=== PATIENT | female | born 2000 | race African-American/Black ===

== ENCOUNTER 2020-10-30 12:18 | Outpatient (RCR) | payer BC, MEDICAID, SELFPAY ==
--- NOTE | 2020-10-30 13:32 | PTOPEVAL ---
PHYSICAL THERAPY EVALUATION AND PLAN OF CARE 10-30-20 Thank you for referring Ivy Hicks to [facility] for the diagnosis of thoracic back pain. She is scheduled to be seen for therapy? 2 x/week for 2 weeks. Then, she is leaving town, to return to college. Please review, sign, date and return this plan of care EDILBERTO. I agree with and certify that the following plan of care is medically necessary. Referring Physician Date Admitting Provider: Attending Provider: FERNANDA Parker *PT Outpatient Evaluation Document 10/30/20 12:35 GISSELLE (Rec: 10/30/20 13:32 GISSELLE [id number]) Past Medical History-- unremarkable Diagnosis thoracic back pain Onset about one year ago Subjective Information gradual increase in pain, as Query Text:As Reported By Patient/ breasts got larger; no trauma Family or injury to back; Diagnostic Tests X-Rays For This Problem No MRI For This Problem No Other Tests For This Problem No Previous Treatments Previous Treatments For This Problem no PT in past Prior Level of Function Activity Level (Last 3 Months) Occupation Work at [employer] Hand Dominance Right Activity of Daily Living Ability Independent Indoor/Home Mobility Independent Community Mobility Independent Stairs Ability Independent Functional Cognition (Planning, Shopping Independent , Taking Medications) Cooking Yes Cleaning Yes Laundry Yes Shopping Yes Driving Yes Comments Additional Prior Level of Function able to perform all home and Comments work tasks, increase pain with standing; Pain Assessment Timing of Pain Assessment Timing of Pain Assessment Assessment Pain Scale Pain Scale Used Numeric (1 - 10) Self Report Pain Assessment Bilateral Spine, Thoracic Reported Pain Level 6 Pain Description Aching Radicular Pain Location no headaches; Pain Frequency Chronic,Intermittent Other Pain Description irritating pain; pressure on shoulders from bra straps; Lowest Pain Intensity 0 Greatest Pain Intensity 7 Pain Aggravating Factors Weight Bearing/Standing Other Pain Aggravating Factors standing tolerance about 1 hour- Pain Behaviors Grimacing,Guarding Pain Score Pain Score 6: Self Report Additional Pain Score Comments self assessment Oswestry score of 14% limitation in activity Interventions Used Interventions Used By Clinicians Elevation,Exercise
--- NOTE | 2020-11-10 10:37 | PCPTNOTE ---
Patient no showed for appointment this date. Left a voicemail with a reminder of upcoming appointment on November 13 at 8:45.
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
--- NOTE | 2020-11-16 10:03 | PCPTNOTE ---
Patient no showed to appointment this date. Called and spoke with patient who said she was going to call and cancel but forgot.
--- NOTE | 2020-11-17 13:17 | PCPTNOTE ---
pt did not show for today's reeval appt;
--- NOTE | 2020-12-04 14:34 | PCPTNOTE ---
PHYSICAL THERAPY DISCHARGE 12-04-20 Attending Provider: FERNANDA Parker Patient:Ivy Hicks Date of :2000 Ms. Hicks has not returned for any further treatments since the PT evaluation on 10/30/2020, therefore she will be discharged at this time. The goals were not assessed. Thank you for referring Ivy to [facility]. Please review, sign, date and return this discharge summary EDILBERTO. I have been updated about the patient's current status and I agree with discharge from the above service at this time. Referring Physician Date
== END 2020-12-09 15:26 | disposition home or self-care (01) ==
LOC: ANHPT 12:18
PROVIDERS: PCP Physician Assistant; Visit Provider Physician Assistant
DX: M54.6 Pain in thoracic spine (principal)
CPT/HCPCS: 97161

== ENCOUNTER 2021-07-09 10:58 | Outpatient (CLI) | payer BC, MEDICAID, SELFPAY ==
--- NOTE | 2021-07-09 | ECG_ITS ---
Measurements Intervals [place] Rate: 62 P: 31 LA: 145 QRS: 62 QRSD: 86 T: 29 QT: 376 QTc: 384 Interpretive Statements SINUS RHYTHM WANDERING BASELINE ARTIFACT NORMAL ECG NO PREVIOUS ECG AVAILABLE FOR COMPARISON Electronically Signed On 07-09-2021 15:18:09 LOOPER OPERATOR by Williams Hayward M.D.
== END 2021-07-09 10:59 | disposition home or self-care (01) ==
LOC: ANHLAB 11:01
PROVIDERS: PCP Physician Assistant; Visit Provider Physician Assistant
DX: Z01.810 Encounter for preprocedural cardiovascular examination (principal)
CPT/HCPCS: 93005

== ENCOUNTER 2021-11-28 14:45 | Emergency (ER) | payer BC, MEDICAID, SELFPAY ==
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
[2021-11-28 14:49] VITALS: BP 111/81; PULSE 86; RESP 14; TEMP 37.1; O2SAT 97
--- NOTE | 2021-11-28 14:49 | ECG_ITS ---
Measurements Intervals [place] Rate: 80 P: 61 [place]: 121 QRS: 36 QRSD: 82 T: 4 QT: 365 QTc: 423 Interpretive Statements SINUS RHYTHM BORDERLINE T WAVE ABNORMALITY- INFERIOR LEADS BASELINE WANDER- II, III, AVR, AVL, AVF, V3-V6 BORDERLINE ECG Electronically Signed On 11-28-2021 17:22:07 CDT by Roberto Dunn D.O.
[2021-11-28 15:48] VITALS: BP 113/92; PULSE 72; RESP 15; O2SAT 100
[2021-11-28 16:39] LABS: Basophils Percent Auto 0.3 % (0.2-1.2); Eosinophils Absolute Auto 0.1 K/mm3 (0-0.3); Eosinophils Percent Auto 0.6 % (0-4.4); Hematocrit 34.2 % (37.0-47.0); Hemoglobin 10.7 g/dL (12.0-15.0); Immature Granulocyte Absolute 0.06 K/mm3 (0.00-0.031); Immature Granulocyte Percent A 0.6 % (0-0.5); Lymphocytes Percent Auto 9.6 % (18.3-44.2); Mean Corpuscular HGB Conc 31.3 g/dl (32-36); Mean Corpuscular Hemoglobin 24.6 pg (26-34); Mean Corpuscular Volume 78.6 fl (80-100); Mean Platelet Volume 9.7 fl (7.4-10.4); Monocytes Absolute Auto 0.9 K/mm3 (0.1-0.6); Monocytes Percent Auto 8.7 % (2.6-8.5); Neutrophils Absolute Auto 8.3 K/mm3 (1.3-6.7); Neutrophils Percent Auto 80.2 % (45.5-73.1); Platelet Count Result 295 k/mm3 (150-375); Red Blood Count 4.35 M/mm3 (4.2-5.4); Red Cell Distribution Width 17.1 % (11.5-14.5); White Blood Count 10.4 K/mm3 (4.5-10.0)
[2021-11-28 16:49] LABS: Alanine Aminotransferase 323 U/L (6-35); Albumin Level 4.2 g/dL (3.5-5.1); Alkaline Phosphatase 68 U/L (38-126); Anion Gap 7 mmol/L (8-16); Aspartate Amino Transferase 357 U/L (14-36); Bilirubin,Total 1.1 mg/dL (0.2-1.3); Blood Urea Nitrogen 9 mg/dL (7-17); Calcium 9.3 mg/dL (8.4-10.2); Carbon Dioxide 28 mmol/L (22-30); Chloride 106 mmol/L (98-107); Estimated CRCL calculation 99 ml/min; Estimated Glomerular Filt Rate > 60; Glucose 107 mg/dL (65-110); Potassium 4.1 mmol/L (3.4-5.0); Sodium 141 mmol/L (137-145)
[2021-11-28 16:51] LABS: INR 1.3; Prothrombin Time 15.2 Seconds (11.1-14.7)
[2021-11-28 16:52] LABS: Partial Thromboplastin Time 25.6 SECONDS (22.3-36.8)
[2021-11-28 17:01] LABS: Troponin I < 0.012 ng/mL (0.000-0.034)
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
[2021-11-28 17:47] LABS: Beta HCG Quantitative < 2.39 mIU/ML
[2021-11-28 18:06] LABS: Appearance Urine Cloudy (Clear); Bilirubin Urine 1+ (Negative); Blood Urine Negative (Negative); Color Urine Amber (Yellow); Glucose Urine UA Negative (Negative); Ketones Urine Trace mg/dL (Negative); Leukocyte Esterase Ur 1+ LEU/UL (Negative); Nitrate Urine Negative (Negative); Protein Urine 1+ mg/dL (Negative); Specific Grav Ur 1.025 (1.001-1.035)
[2021-11-28 18:19] LABS: Amorphous Sediment Urine Few; Bacteria Urine Trace /hpf; Mucus Urine Few /lpf; Squamous Epithelial Cell Urine Many /hpf (Few); WBC Urine 21-30 /hpf
[2021-11-28 18:21] LABS: Add Urine Microscopic? YES
[2021-11-28] MEDS: SODIUM CHLORIDE 0.9% IV 1,000 ML 999 ML IV CONT (18:27)
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
[2021-11-28 19:08] VITALS: BP 124/101; O2SAT 99
[2021-11-28 19:15] VITALS: BP 122/87
--- NOTE | 2021-11-28 19:20 | PC.NURSE ---
[facility] called and given report to charge.
[2021-11-28 19:30] VITALS: PULSE 88; RESP 23; O2SAT 99
[2021-11-28] MEDS: SODIUM CHLORIDE 0.9% IV 1,000 ML 125 ML IV CONT (19:37)
[2021-11-28 19:39] VITALS: BP 100/89; PULSE 80; RESP 21; O2SAT 100
== END 2021-11-28 19:41 | disposition short-term general hospital (02) ==
PROVIDERS: Emergency Provider Emergency Medicine; PCP Physician Assistant
DX: S36.113A Laceration of liver, unspecified degree, initial encounter (principal); S27.1XXA Traumatic hemothorax, initial encounter; S37.011A Minor contusion of right kidney, initial encounter; S42.022A Displaced fracture of shaft of left clavicle, initial encounter for closed fracture; S32.011A Stable burst fracture of first lumbar vertebra, initial encounter for closed fracture; S32.021A Stable burst fracture of second lumbar vertebra, initial encounter for closed fracture; S22.43XA Multiple fractures of ribs, bilateral, initial encounter for closed fracture; S36.899A Unspecified injury of other intra-abdominal organs, initial encounter; V47.5XXA Car driver injured in collision with fixed or stationary object in traffic accident, initial encounter
CPT/HCPCS: 36415; 70450; 71046; 71260; 72125; 73000; 74177; 80053; 81001; 81025; 84484; 84702; 85025; 85610; 85730; 87086; 87088; 93005; 96374; 99285; A4565; J0131; J7030; Q9967

== ENCOUNTER 2024-07-08 16:48 | Emergency (ER) | payer BC, SELFPAY ==
[2024-07-08 16:50] VITALS: BP 126/81; PULSE 83; RESP 16; TEMP 36.8; O2SAT 100
--- NOTE | 2024-07-08 17:10 | PC.NURSE ---
Patient witnessed walking out of ED and getting into car
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
--- OUTSIDE RECORDS SUMMARY | 2024-07-08 19:01 | XMS_ITS | Patient Health Summary ---
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 3:26 PM CDT Shilo Connolly MD ECG ORDERABLES [facility] * MRI LUMBAR SPINE WO CONTRAST (11/29/2021 12:57 AM CDT) Anatomical Region Laterality Modality Spine Magnetic Resonan ce 11/29/2021 9:52 AM CDT Impressions 11/29/2021 10:18 AM CDT IMPRESSION: 1. Acute superior endplate compression fractures involving L1 and L2 with mild height loss at L1. No significant retropulsion. There is injury/edema involving the interspinous ligaments at the level of T12-L1 and also mildly at the level of L1 and L2. Possible minimal injury to the ligamentum flavum at the level of T12-L1. No significant epidural hematoma is noted. 2. Bony edema involving the superior endplate of L3 vertebral body and also involving T12 vertebral body without height loss, favored to represent acute fractures/contusions.. This report was electronically signed by LIUDMILA ALVAREZ MD on 11/29/2021 10:18 AM . Narrative 11/29/2021 10:18 AM CDT MRI LUMBAR SPINE WO CONTRAST DATE: 11/29/2021 12:58 AM EXAMINATION: Magnetic resonance imaging (MRI) of the lumbar spine without contrast HISTORY: T14.90XA: Trauma TECHNIQUE: MRI of the lumbar spine was performed without contrast according to standard protocol. COMPARISON: CT lumbar spine 11/28/2021 FINDINGS: The alignment is normal. The superior endplate compression fractures involving L1 and L2 vertebral body. There is minimal height loss at L2 vertebral body and mild height loss up to 20-25 percent at the L1 vertebral body. Minimal or no significant retropulsion at L1 and L2 vertebral bodies.. There is linear increased marrow signal at superior endplate of L3 vertebral body also suggesting acute superior endplate endplate compression fracture/bone contusion without height loss. There is also increased edema involving T12 vertebral body without height loss also suggesting bone contusion. The conus medullaris terminates at the level of L1-L2 and the distal spinal cord signal intensity is normal. Mild height loss at T12-L1 intervertebral disc space. Otherwise no significant intervertebral disc height loss. Small amount of fluid noted in the pelvis. Normal caliber of the aorta. No other acute soft tissue abnormalities noted. Mild facet arthropathy at L4-L5. Otherwise no significant degenerative changes. No central canal or is neural foraminal stenosis. No definite epidural hematoma. There is injury/edema involving the interspinous ligament at the level of T12-L1 and minimally at the level of L1-L2. There is probable injury to the ligamentum flavum at the level of T12-L1 (image 11, series 2, image 4, series 7) Procedure Note Liudmila Alvarez MD - 11/29/2021 MRI LUMBAR SPINE WO CONTRAST DATE: 11/29/2021 12:58 AM EXAMINATION: Magnetic resonance imaging (MRI) of the lumbar spinewithout contrast HISTORY: T14.90XA: Trauma TECHNIQUE: MRI of the lumbar spine was performed without contrast according to standard protocol. COMPARISON: CT lumbar spine 11/28/2021 FINDINGS: The alignment is normal. The superior endplate compression fractures involving L1 and L2 vertebral body. There is minimal height loss at L2 vertebral body and mild height loss up to 20-25 percent at the L1 vertebral body. Minimal or no significant retropulsion at L1 and L2 vertebral bodies.. There is linear increased marrow signal at superior endplate of L3 vertebral body also suggesting acute superior endplate endplate compression fracture/bone contusion without height loss. Thereis also increased edema involving T12 vertebral body without height lossalso suggesting bone contusion. The conus medullaris terminates at the levelof L1-L2 and the distal spinal cord signal intensity is normal. Mild height loss at T12-L1 intervertebral disc space. Otherwise no significant intervertebral disc height loss. Small amount of fluid noted in the pelvis. Normal caliber of the aorta. No other acute soft tissue abnormalities noted. Mild facet arthropathy at L4-L5. Otherwise no significant degenerative changes. No central canal or is neural foraminal stenosis. No definite epidural hematoma. There is injury/edema involving the interspinous ligament at the levelof T12-L1 and minimally at the level of L1-L2. There is probable injury to the ligamentum flavum at the level of T12-L1 (image 11, series 2, image4, series 7) IMPRESSION: 1. Acute superior endplate compression fractures involving L1 and L2with mild height loss at L1. No significant retropulsion. There isinjury/edema involving the interspinous ligaments at the level of T12-L1 and also mildly at the level of L1 and L2. Possible minimal injury to the ligamentum flavum at the level of T12-L1. No significant epiduralhematoma is noted. 2. Bony edema involving the superior endplate of L3 vertebral body and also involving T12 vertebral body without height loss, favored to represent acute fractures/contusions.. This report was electronically signed by LIUDMILA ALVAREZ MD on 11/29/2021 10:18 AM . Callum Padilla MD MR ORDERABLES * (ABNORMAL) URINALYSIS W/MICROSCOPIC NO CULTURE (11/29/2021 12:12 AM CDT) Color UA Yellow Straw, Yellow 11/29/2021 12:39 AM [facility] Clarity UA Slt Cloudy(A) Clear 11/29/2021 12:39 AM [facility] Specific [place] UA >1.060(H) 1.005 - 1.030 11/29/2021 12:39 AM [facility] pH UA 6.0 5.0 - 8.0 pH 11/29/2021 12:39 AM [facility] Protein UA Negative Negative 11/29/2021 12:39 AM [facility] Glucose UA Negative Negative 11/29/2021 12:39 AM [facility] Ketone UA 1+(A) Negative 11/29/2021 12:39 AM [facility] Bilirubin UA Negative Negative 11/29/2021 12:39 AM [facility] Blood UA 1+(A) Negative 11/29/2021 12:39 AM [facility] Nitrite UA Negative Negative 11/29/2021 12:39 AM [facility] Leukocyte Esterase 2+(A) Negative 11/29/2021 12:39 AM [facility] Urobilinogen UA Negative Negative mg/dL 11/29/2021 12:39 AM [facility] RBC UA 11-20(A) None Seen, 0-2, 3-5 /HPF 11/29/2021 12:39 AM [facility] WBC UA 11-20(A) None Seen, 0-5 /HPF 11/29/2021 12:39 AM [facility] Squamous Epithelial Cells UA 11-20(A) None Seen, 0-2, 3-5 /HPF 11/29/2021 12:39 AM [facility] Mucus UA 1+ /LPF 11/29/2021 12:39 AM [facility] Urine URINE SPECIMEN OBTAINED BY CLEAN CATCH PROCEDURE / Unknown Collection / Unknown 11/29/2021 12:12 AM CDT 11/29/2021 12:23 AM [facility] - 11/29/2021 12:39 AM CDT Callum Padilla MD LAB - URINALYSIS OR DERABLES Performing Organization Address City/State/[facility] Co de Phone Number [facility] [address] [place] [address], [facility] [phone] * URINE DRUG SCREEN IMMUNOASSAY (11/29/2021 12:12 AM T) [facility] Amphetamines Screen Urine Negative Negative: < 1000 ng/mL 11/29/2021 12:44 AM [facility] Barbiturates Screen Urine Negative Negative: < 200 ng/mL 11/29/2021 12:44 AM [facility] Benzodiazepine Screen Urine Negative Negative: < 200 ng/mL 11/29/2021 12:44 AM [facility] Opiates Urine Negative Negative: < 300 ng/mL 11/29/2021 12:44 AM [facility] Cocaine Metabolites Urine Negative Negative: < 300 ng/mL 11/29/2021 12:44 AM [facility] Phencyclidine Screen Urine Negative Negative: < 25 ng/ml 11/29/2021 12:44 AM CDT [facility] Cannabinoids Screen Urine Negative Negative: <50 ng/mL 11/29/2021 12:44 AM CDT [facility] Methadone Screen Urine Negative Negative: < 300 ng/mL 11/29/2021 12:44 AM CDT [facility] Fentanyl Screen Urine Negative Negative: <1.5 ng/mL 11/29/2021 12:44 AM CDT [facility] Urine URINE / Unknown Collection / Unknown 11/29/2021 12:12 AM CDT 11/29/2021 12:23 AM CDT Narrative [facility] - 11/29/2021 12:44 AM CDT The Urine Toxicology Screening Panel does not screen for Propoxyphene, Meprobamate, Carisoprodol, Trazodone, xikm-crr-vniqgon medications and/or volatiles (Acetone, Isopropanol, Methanol or Ethylene Glycol). Ethanol, Salicylate, Acetaminophen, Tricyclic Antidepressants and several therapeutic drugs may be individually assayed in serum or plasma specimen. Toxicology testing by the [facility] is an aid to medical diagnosis and treatment of patients. No documented chain of custody was maintained. Results are intended to be used for clinical purposes only. Callum Padilla MD LAB - URINE DISTRICT LEADER RY ORDERABLES [facility] [address] [place] [address], [facility] [phone] * CT THORACIC SPINE WO CONTRAST (11/28/2021 10:51 PM CDT) Anatomical Region Laterality Modality Spine Computed Tomogra phy 11/28/2021 11:1 2 PM CDT Impressions 11/29/2021 8:47 AM CDT IMPRESSION: 1.Acute incomplete burst fractures of L1 and L2 vertebral bodies with minimal retropulsion. No significant spinal canal stenosis. Suspect widening of the intraspinous distance at T12-L1. These findings raise suspicion for acute injury to the anterior, middle, and posterior columns. 2.No acute fracture in the thoracic spine. 3.Acute bilateral first rib fractures. There is an acute minimally displaced right third posterior rib fracture. 4.Partially visualized small right and trace left pleural effusion/hemothorax. Report drafted by Estevan Rogers MD (Auditor Supervisor). I, Dr. SHANE TAVERA have personally reviewed and interpreted this examination/study. This report was electronically signed by SHANE TAVERA on 11/29/2021 8:47 AM . Narrative 11/29/2021 8:[address] THORACIC SPINE WO CONTRAST, CT LUMBAR SPINE WO CONTRAST DATE: 11/28/2021 10:54 PM EXAMINATION: 1.CT of the thoracic spine without contrast 2.CT of the lumbar spine without contrast HISTORY: T14.90XA: Trauma TECHNIQUE: CT of the thoracic and lumbar spine was performed without contrast according to standard protocol. COMPARISON: No prior studies available for comparison FINDINGS: Thoracic spine: The alignment is normal. Vertebral bodies are normal in height without evidence of acute fracture. There is suggestion of an acute nondisplaced bilateral first rib fractures (image 27 series 3). There is a minimally displaced right third posterior rib fracture. The intervertebral discs appear normal. No central canal stenosis is seen. The facets appear normal. No neural foraminal stenosis is seen. There are partially visualized small right and trace left pleural effusion/hemothorax. Lumbar spine: The alignment is normal. There are acute incomplete burst fractures of the L1 and L2 vertebral body with 10 percent anterior vertebral height loss, mild anterior displacement of the fracture fragments, and minimal retropulsion. No significant spinal canal stenosis. There is mild widening of the interspinous distance at T12-L1 suspicious for injury to the posterior column. No associated facet joint diastasis is seen. There is no degenerative disc disease. The facets appear normal. No neural foraminal stenosis is seen. Procedure Note Shane Tavera MD - 11/29/2021 CT THORACIC SPINE WO CONTRAST, CT LUMBAR SPINE WO CONTRAST DATE: 11/28/2021 10:54 PM EXAMINATION: 1.CT of the thoracic spine without contrast 2.CT of the lumbar spine without contrast HISTORY: T14.90XA: Trauma TECHNIQUE: CT of the thoracic and lumbar spine was performed without contrast according to standard protocol. COMPARISON: No prior studies available for comparison FINDINGS: Thoracic spine: The alignment is normal. Vertebral bodies are normal in height without evidence of acute fracture. There is suggestion of an acute nondisplaced bilateral first rib fractures (image 27 series 3). There is a minimally displaced right third posterior rib fracture. The intervertebral discs appear normal. No central canal stenosis is seen. The facets appear normal. No neural foraminal stenosis is seen. There are partially visualized small right and trace left pleural effusion/hemothorax. Lumbar spine: The alignment is normal. There are acute incomplete burst fractures ofthe L1 and L2 vertebral body with 10 percent anterior vertebral height loss, mild anterior displacement of the fracture fragments, and minimal retropulsion. No significant spinal canal stenosis. There is mildwidening of the interspinous distance at T12-L1 suspicious for injury to the posterior column. No associated facet joint diastasis is seen. There is no degenerative disc disease. The facets appear normal. Noneural foraminal stenosis is seen. IMPRESSION: 1.Acute incomplete burst fractures of L1 and L2 vertebral bodies with minimal retropulsion. No significant spinal canal stenosis. Suspect widening of the intraspinous distance at T12-L1. These findings raise suspicion for acute injury to the anterior, middle, and posteriorcolumns. 2.No acute fracture in the thoracic spine. 3.Acute bilateral first rib fractures. There is an acute minimally displaced right third posterior rib fracture. 4.Partially visualized small right and trace left pleural effusion/hemothorax. Report drafted by Estevan Rogers MD (Auditor Supervisor). Dr. SHANE Perales have personally reviewed and interpreted this examination/study. This report was electronically signed by SHANE TAVERA on 11/29/2021 8:47 AM . Callum Padilla MD CT ORDERABLES * CT ANGIO NECK (11/28/2021 10:51 PM CDT) Anatomical Region Laterality Modality Head Computed Tomogra phy 11/28/2021 10:5 7 PM CDT Impressions 11/29/2021 8:52 AM CDT IMPRESSION: 1.No large arterial injury or occlusion identified in the neck. 2.Acute fracture of the left clavicle with associated soft tissue hematoma and contusion. 3.Partially visualized small right and trace left pleural effusion/hemothorax. Report drafted by Estevan Rogers MD (Auditor Supervisor) Dr. SHANE Perales have personally reviewed and interpreted this examination/study. This report was electronically signed by SHANE TAVERA on 11/29/2021 8:52 AM . Narrative 11/29/2021 8:[address] ANGIO NECK DATE: 11/28/2021 10:54 PM EXAMINATION: CT angiography of the neck with contrast HISTORY: T14.90XA: Trauma TECHNIQUE: CT angiography of the neck was obtained after the uneventful administration of 50 mL Isovue-370 intravenous contrast. Three dimensional postprocessing was performed by the technologist and sent to the workstation for review. COMPARISON: No prior study is available for comparison at the time of this dictation. FINDINGS: Non-angiographic findings: No acute fractures of the cervical spine. There is an acute fracture of the left clavicle with surrounding soft tissue swelling in the left shoulder region and left upper chest. Small right and trace left pleural effusion/hemothorax are partly in the [id number]. No contrast pooling is demonstrated in the soft tissues of the neck to suggest active bleeding. Angiographic findings: The visible aortic arch appears normal. The configuration of the brachiocephalic vessels is typical. The innominate artery and both subclavian arteries appear normal. The right common and internal carotid arteries as well as the right carotid bifurcation appear normal. The left common and internal carotid arteries as well as the left carotid bifurcation appear normal. The cervical vertebral arteries appear normal. The vertebral arteries are codominant. Procedure Note Shane Tavera MD - 11/29/2021 CT ANGIO NECK DATE: 11/28/2021 10:54 PM EXAMINATION: CT angiography of the neck with contrast HISTORY: T14.90XA: Trauma TECHNIQUE: CT angiography of the neck was obtained after the uneventful administration of 50 mL Isovue-370 intravenous contrast. Threedimensional postprocessing was performed by the technologist and sent to the workstation for review. COMPARISON: No prior study is available for comparison at the time ofthis dictation. FINDINGS: Non-angiographic findings: No acute fractures of the cervical spine. There is an acute fracture of the left clavicle with surrounding soft tissue swelling in the left shoulder region and left upper chest. Small right and trace left pleural effusion/hemothorax are partly in the [id number]. No contrast pooling is demonstrated in the soft tissues of the neck to suggest active bleeding. Angiographic findings: The visible aortic arch appears normal. The configuration of the brachiocephalic vessels is typical. The innominate artery and both subclavian arteries appear normal. The right common and internal carotid arteries as well as the right carotid bifurcation appear normal. Theleft common and internal carotid arteries as well as the left carotid bifurcation appear normal. The cervical vertebral arteries appearnormal. The vertebral arteries are codominant. IMPRESSION: 1.No large arterial injury or occlusion identified in the neck. 2.Acute fracture of the left clavicle with associated soft tissuehematoma and contusion. 3.Partially visualized small right and trace left pleural effusion/hemothorax. Report drafted by Estevan Rogers MD (Auditor Supervisor) IDr. SHANE have personally reviewed and interpreted this examination/study. This report was electronically signed by SHANE TAVERA on 11/29/2021 8:52 AM . Callum Padilla MD CT ORDERABLES * BLOOD TYPE VERIFICATION (11/28/2021 8:47 PM CDT) ABO Rh B POS 11/28/2021 9:2 3 PM CDT [facility] Blood Bank BLOOD SPECIMEN / Unknown Venipuncture / Unknown 11/28/2021 8:47 PM CDT 11/28/2021 8:50 PM CDT Ondina Burch MD LAB - BLOOD BANK ORD ERABLES [facility] [address] [place] [address], [facility] [phone] * (ABNORMAL) PTT [facility] (11/28/2021 8:37 PM CDT) APTT 22.6(L) 23.0 - 38.4 Seconds 11/28/2021 9:07 PM CDT [facility] Comment:Suggested therapeuti c range for full dose I.V. unfractionated heparin therapy for venous thromboembolism is 71 to 109 seconds. Blood BLOOD SPECIMEN / Unknown Venipuncture / Unknown 11/28/2021 8:37 PM CDT 11/28/2021 8:40 PM CDT Callum Padilla MD LAB - COAGULATION O FRANCIA Performing Organization Address City/[facility]/ZIP Co de Phone Number [facility] [address] [place] [address], [facility] [phone] * (ABNORMAL) PT-INR [facility] (11/28/2021 8:37 PM CDT) PT 15.0(H) 12.1 - 14.8 Seconds 11/28/2021 9:06 PM CDT [facility] INR 1.2 See Comment 11/28/2021 9:06 PM CDT [facility] Comment:The suggested therap eutic range for standard coumadin (warfarin) therapy is an INR of 2.0-3.0. For high-risk patients (Mechanical Mitral Valve Prosthesis, etc.), the suggested prophylactic therapeutic range is an INR of 2.5-3.5. Blood BLOOD SPECIMEN / Unknown Venipuncture / Unknown 11/28/2021 8:37 PM CDT 11/28/2021 8:40 PM CDT Callum Padilla MD LAB - COAGULATION O FRANCIA Performing Organization Address City/[facility]/ZIP Co de Phone Number [facility] [address] [place] [address], [facility] [phone] * (ABNORMAL) CBC W AUTO DIFFERENTIAL (11/28/2021 8:37 PM CDT) WBC 10.3 3.5 - 10.5 10 3/uL 11/28/2021 8:47 PM CDT [facility] RBC 4.01 3.80 - 5.20 10 6/uL 11/28/2021 8:47 PM CDT [facility] Hemoglobin 9.6(L) 12.0 - 15.6 g/dL 11/28/2021 8:47 PM CDT [facility] Hematocrit 30.6(L) 35.0 - 45.0 % 11/28/2021 8:47 PM CDT [facility] MCV 76.3(L) 80.7 - 98.3 fL 11/28/2021 8:47 PM [facility] MCH 23.9(L) 26.7 - 34.0 pg 11/28/2021 8:47 PM [facility] MCHC 31.4 30.8 - 35.9 g/dL 11/28/2021 8:47 PM [facility] Platelet Count 281 150 - 400 10 3/uL 11/28/2021 8:47 PM [facility] RDW-SD 46.5 36.0 - 50.0 fL 11/28/2021 8:47 PM [facility] RDW-CV 16.7(H) 11.2 - 14.8 % 11/28/2021 8:47 PM [facility] MPV 10.0 9.4 - 12.9 fL 11/28/2021 8:47 PM [facility] nRBC Absolute 0.00 0 10 3/uL 11/28/2021 8:47 PM [facility] nRBC Auto 0.0 0 /100 WBC 11/28/2021 8:47 PM [facility] Neutrophils % 79.3(H) 35.0 - 70.0 % 11/28/2021 8:47 PM [facility] Lymphocytes % 12.5(L) 20.0 - 43.0 % 11/28/2021 8:47 PM [facility] Monocytes % 7.3 5.0 - 13.0 % 11/28/2021 8:47 PM [facility] Eosinophils % 0.2 0.0 - 6.0 % 11/28/2021 8:47 PM [facility] Basophil % 0.3 0.0 - 2.0 % 11/28/2021 8:47 PM [facility] Neutrophils Absolute 8.17(H) 1.60 - 7.00 10 3/uL 11/28/2021 8:47 PM [facility] Lymphocyte Absolute 1.29 1.10 - 3.90 10 3/uL 11/28/2021 8:47 PM [facility] Monocytes Absolute 0.75 0.26 - 1.07 10 3/uL 11/28/2021 8:47 PM CDT [facility] Eosinophils Absolute 0.02 0.00 - 0.47 10 3/uL 11/28/2021 8:47 PM CDT [facility] Basophils Absolute 0.03 0.00 - 0.08 10 3/uL 11/28/2021 8:47 PM CDT [facility] Immature Granulocytes % 0.4 0.0 - 1.0 % 11/28/2021 8:47 PM CDT [facility] Immature Granulocytes Absolute 0.04 11/28/2021 8:47 PM CDT [facility] Blood BLOOD SPECIMEN / Unknown Venipuncture / Unknown 11/28/2021 8:37 PM CDT 11/28/2021 8:40 PM CDT Callum Padilla MD LAB - HEMATOLOGY OR DERABLES Performing Organization Address City/[facility]/ZIP Co de Phone Number [address] [address], [facility] [phone] * HCG BETA BLOOD QUANTITATIVE (11/28/2021 8:37 PM CDT) [facility] Beta-hCG Total Quantitative <3 mIU/mL 11/28/2021 9:26 PM CDT [facility] Comment: This assay is cleared for use in the early detection of only. It is not approved for any other uses such as tumor marker screening, tumor marker monitoring, etc. and should not be used for any other purposes. HCG Numeric Result Interpretation: Non- Females: < 5 mIU/mL Post-Menopausal Females: < 7 mIU/mL Blood BLOOD SPECIMEN / Unknown Venipuncture / Unknown 11/28/2021 8:37 PM CDT 11/28/2021 8:40 PM CDT Callum Padilla MD LAB - CHEMISTRY ORD ERABLES [address] [address], [facility] [phone] * LIPASE BLOOD (11/28/2021 8:37 PM CDT) Lipase 22 8 - 78 U/L 11/28/2021 9:14 PM CDT [facility] Blood BLOOD SPECIMEN / Unknown Venipuncture / Unknown 11/28/2021 8:37 PM CDT 11/28/2021 8:40 PM CDT Callum Padilla MD LAB - CHEMISTRY ORD ERABLES Performing Organization Address City/[facility]/ZIP Co de Phone Number [address] [address], [facility] [phone] * ALCOHOL ETHYL BLOOD (11/28/2021 8:37 PM CDT) Ethanol (mg/dL) <10 <10 mg/dL 9:14 PM CDT [facility] Ethanol Calculated (g/dL) <0.010 <=0.010 g/dL 11/28/2021 9:14 PM CDT [facility] Blood BLOOD SPECIMEN / Unknown Venipuncture / Unknown 11/28/2021 8:37 PM CDT 11/28/2021 8:40 PM CDT Narrative [facility] - 11/28/2021 9:14 PM CDT Ethanol Interp <10: None Detected. Depression of TITLE ATTORNEY: >100 mg/dl Potentially Critical: >250 mg/dl Potentially Fatal >400 mg/dl Ethanol in the patient's blood will contribute to the osmolar gap. Ethanol's contribution to the osmolar gap can be estimated by dividing the concentration of ethanol in mg/dL by 4.6. This test is for clinical use only and does not equal a LEANDRO for legal purposes. Callum Padilla MD LAB - CHEMISTRY ORD ERABLES Performing Organization Address City/[facility]/ZIP Co de Phone Number [address] [address], [facility] [phone] * XR PELVIS 1 OR 2VW (11/28/2021 8:36 PM CDT) Anatomical Region Laterality Modality Pelvis Radiographic Mehnaz ging 11/28/2021 9:24 PM CDT Impressions 11/28/2021 9:56 PM CDT IMPRESSION: No acute fracture or dislocation identified. Report drafted by Estevan Rogers MD (Auditor Supervisor). Dr. MARCIO Perales have personally reviewed and interpreted this examination/study. This report was electronically signed by MARCIO JENNINGS on 11/28/2021 9:56 PM . Narrative 11/28/2021 9:56 PM CDT EXAMINATION: XR PELVIS 1 OR 2VW HISTORY: Trauma Fracture suspected COMPARISON: No prior study is available for comparison. FINDINGS: No acute fracture is identified. The bilateral hip joint spaces are preserved. The pubic symphysis is intact. The osseous architecture and density are normal. The sacroiliac joints are normal. There is contrast opacification of the urinary bladder. Procedure Note Marcio Jennings MD - 11/28/2021 EXAMINATION: XR PELVIS 1 OR 2VW HISTORY: Trauma Fracture suspected COMPARISON: No prior study is available for comparison. FINDINGS: No acute fracture is identified. The bilateral hip joint spaces are preserved. The pubic symphysis is intact. The osseous architecture and density are normal. The sacroiliac joints are normal. There is contrast opacification of the urinary bladder. IMPRESSION: No acute fracture or dislocation identified. Report drafted by Estevan Rogers MD (Auditor Supervisor). Dr. MARCIO Perales have personally reviewed and interpreted this examination/study. This report was electronically signed by MARCIO JENNINGS on 11/28/2021 9:56PM . Callum Padilla MD DIAGNOSTIC IMAGING ORDERABLES * ETT LINE PERFORMABLE (07/14/2021 12:41 PM CDT) Narrative Clarita Felder MD - 07/14/2021 12:41 PM CDT Clarita Felder MD 07/14/2021 12:46 PM Endotracheal Tube Placement: Patient Location: OR. Intubation Event Date/Time: 07/14/2021 12:04 PM Procedure: intubation ([id number]). Procedure Section: Sedation: under general anesthesia. Indications for Airway Management: anesthesia Induction: standard IV Patient Position: supine Mask Ventilation: easy with oral airway. Blade Type: Any Blade Size: 3 Laryngoscopy View: grade 1 (full cords) Tube type: cuff - inflated Tube Size (MM): 7.5 Depth of Insertion (CM): 22 Measured From: lips Cuff volume (mL): 3 Cuff Inflated With: air Number of Attempts: 1. Placement Verified By: direct visualization, bilateral breath sounds, chest auscultation and CO2 monitor Tube secured with: adhesive tape. Dentition unchanged? Yes Difficult Airway? No. Procedure Start Time: 07/14/2021 12:04 PM. Staff Section Anesthesia Provider: Bonny Chapa APRN-STAKE DRIVER, Performed the procedure Provider #1: Clarita Felder MD. Additional Comments: Placed by ER fellow.. Clarita Felder MD GENERAL ANESTHESIA O RDERABLES * PATHOLOGY TISSUE EXAM (STL) (07/14/2021 11:00 AM CDT) Case Report Surgical Pathology Report Case: [id number] Authorizing Provider: Mary Randhawa MD Collected: 07/14/2021 11:00 AM Ordering Location: INTRAOP Received: 07/15/2021 07:23 AM Pathologist: Jean Paul Morel MD Specimens: A) - Breast Reduction, right breast reduction B) - Breast Reduction, left breast reduction 07/19/2021 12:51 PM T [facility] Final Diagnosis A) Breast, Right, Excision: - No significant histopathologic abnormality. - Clinical history of macromastia. B) Breast, Left, Excision: - No significant histopathologic abnormality. - Clinical history of macromastia. 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 07/19/2021 12:51 PM T [facility] Gross Description Two specimens are received, each in a formalin-filled container labeled with the patient's name, Ivy Hicks. Specimen A, right breast reduc++, consists of multiple fragments of yellow to pink-baker fibroadipose tissue measuring 0.6 to 26 cm in greatest dimension, 30 x 15 x 5.0 cm in aggregate, weighing 680 g. There are detached fragments of dark baker skin ellipses measuring up to 13 x 1.5 cm. Sectioning shows yellow to pink-baker cut surface with areas of white-baker stromal tissue. There are no focal lesions identified. Chief Technologist sections are submitted in cassette [id number]. Specimen B, left breast reduction, consists of multiple fragments of yellow to pink-baker fibroadipose tissue measuring 6.0 to 30 cm in greatest dimension and 35 x 30 x 3.0 cm in aggregate. There is dark baker attached skin and detached fragments of skin measuring up to 15 cm in length by 4.0 cm in width. The specimen weighs 780 g. Sectioning shows yellow to pink-baker cut surface with white areas of fibrous tissues. There are no focal lesions identified. Chief Technologist sections are submitted in cassettes B1-B5. (SAMSON/ETHAN/daryl) 07/19/2021 12:51 PM [facility] Microscopic Description A) 5 H&E; B) 5 H&E. Sections of both specimens show similar histologic features: unremarkable hair-bearing skin and breast parenchyma that is unremarkable except for a rare focus of apocrine metaplasia. (SAMSON) 07/19/2021 12:51 PM [facility] Disclaimer The performance characteristics of all immunohistochemical and indirect immunofluorescence stains (if any) cited in this report were determined by the [facility] of [facility] in compliance with Clinical Laboratory Improvement Amendments of 1988 (CLIA'88) regulations. Some of these tests rely on the use of analyte-specific reagents and are subject to specific labeling requirements by the U.S. Food and Drug Administration (FDA). Such tests were developed by the [facility] of [facility] and have not been cleared or approved by the FDA. The FDA has determined that such clearance or approval is not necessary. These tests are used for clinical purposes and should not be regarded as investigational or for research. This case has been personally reviewed and interpreted by the attending (teaching) pathologist. 07/19/2021 12:51 PM [facility] Embedded Images 07/19/2021 12:51 PM [facility] Pathology/Cytology SPECIMEN FROM BREAST OBTAINED BY EXCISION / Unknown 07/14/2021 11:00 AM CDT 07/15/2021 7:23 AM CDT Comment:Pre-op diagnosis: Hypertrophy of breast [N62] Miscellaneous samples (specimen) SPECIMEN FROM BREAST OBTAINED BY EXCISION / Unknown 07/14/2021 11:00 AM CDT 07/15/2021 7:23 AM CDT Comment:Pre-op diagnosis: Hypertrophy of breast [N62] Mary Randhawa MD LAB - PATHOLOGY /CYTOLOGY ORDERABLES Performing Organization Address [facility] Co de Phone Number [facility] [address] [place] [phone] * HCG URINE QUALITATIVE - POCT (IP) INTERFACED (07/14/2021 10:31 AM CDT) Only the most recent of2 resultswithin the time period is included. HCG Qual Urine Negative Negative 07/14/2021 10:42 AM CDT [facility] Urine URINE / Unknown 07/14/2021 1 0:31 AM CDT 07/14/2021 10:42 AM CDT Mary Randhawa MD LAB - POINT OF CARE ORDERABLES Performing Organization Address [facility] Co de Phone Number [facility] [address] [place] [phone] * HCG URINE QUAL POCT NOTIFICATION (07/14/2021 10:28 AM CDT) Only the most recent of2 resultswithin the time period is included. Comment Notification Label Only - See Separate Report 07/14/2021 11:30 AM CDT [facility] Urine URINE / Unknown 07/14/2021 1 0:28 AM CDT 07/14/2021 10:29 AM CDT Mary Randhawa MD LAB - URINALYSI S ORDERABLES Performing Organization Address [facility] Co de Phone Number [facility] [address] [place] [phone] * SARS-COV-2 (COVID-19) INTERNAL (07/09/2021 1:17 PM OUTPLACEMENT CONSULTANT) Only the most recent of2 resultswithin the time period is included. COVID-19 PCR Not detected Not detected 07/10/2021 1:10 AM OUTPLACEMENT CONSULTANT [facility] Microbiology SPECIMEN FROM NASOPHARYNGEAL STRUCTURE / Unknown Collection / Unknown 07/09/2021 1:17 PM OUTPLACEMENT CONSULTANT 07/09/2021 1:17 PM OUTPLACEMENT CONSULTANT Narrative [facility] - 07/10/2021 1:10 AM OUTPLACEMENT CONSULTANT This nucleic acid amplification assay performance was validated by [facility]. This test has been authorized by the Food and Drug administration (FDA)under an Emergency Use Authorization (EUA). This test has been validated in accordance with the FDA's guidance document Policy for Diagnostic Testing in Laboratories Certified to perform High Complexity Testing under CLIA prior to Emergency Use Authorization for Coronavirus Disease-2019 during the Public Health Emergency issued on June 29, 2019. FDA independent review of this validation is pending. This test is only authorized for the duration of time the declaration that circumstances exist justifying the authorization of emergency use of in vitro diagnostic tests for detection of SARS-CoV-2 virus and/or diagnosis of COVID-19 infection under section 564(b)(1) of the Act, 21 U.S.C 360bbb-3 (b)(1), unless the authorization is terminated or revoked sooner. Fact Sheets for this EUA assay are available upon request. Mandy YOUNG LAB - MICROBIOLOG Y ORDERABLES [facility] [address] [place], [address] [phone] * HCG BLOOD QUALITATIVE (05/27/2021 7:18 AM OUTPLACEMENT CONSULTANT) [facility] HCG Qual Serum Positive Negative, Positive 05/27/2021 7:45 AM OUTPLACEMENT CONSULTANT [facility] Blood BLOOD SPECIMEN / Unknown Venipuncture / Unknown 05/27/2021 7:18 AM OUTPLACEMENT CONSULTANT 05/27/2021 7:23 AM OUTPLACEMENT CONSULTANT Mary Randhawa MD LAB - CHEMISTRY ORDERABLES [facility] [address] [address], [facility] [phone] Care Teams Control Room Agent Relationship Specialty Start Date End Date Carolyne Lee PA-C [facility] [place] [phone] PCP - General Physician Third Helper 07/09/21
--- OUTSIDE RECORDS SUMMARY | 2024-07-08 19:01 | XMS_ITS | Data Portability ---
Author Organization [facility] Address [address] [place] [address] Assessment No assessment recorded. Plan of Treatment Reminders Order Date Submit Date Provider Last Modified By Organization Details Last Modified Time Details Appointments None recorded. Lab pap, LB 2022 023 [email or web address], [address] [facility], [place], [address], 3 11:06:29 unlisted lab - Pap reflex hold plus CT/GC/tric h 2022 023 [employer] [place] Tariq, [address] [place] [address], [address], 3 17:43:51 Referral None recorded. Procedures None recorded. Surgeries None recorded. Imaging None recorded. Medication Orders Slynd 4 mg (28) tablet 2022 023 [id number], [address], [place], [id number], 3 14:19:09 Slynd 4 mg (28) tablet 2021 022 [facility] #[id number], [address], [place], [id number], 2 13:35:56 Patient TargetsNo targets recorded. Patient Instructions Encounter Date Encounter Id Patient Instructions Last Modified By Organization Details Last Modified Time 07/16/2022 [id number] eating healthy foods: care instructions [id number] Not available 07/16/2022 13:40:00 Reason for Referral None Reported. Results Created Date Observation Date Name Description Value Unit Range Abnormal Flag Note LastModifiedBy Organization Detail LastModifiedTime 07/17/19 23 07/19/2022 CT/GC /TRIC H + HOLD trichomonas vaginalis TRICH neg negati ve normal Not Available [address], [address], 07/19/2022 17:43:51 07/17/19 23 07/19/2022 CT/GC /TRIC H + HOLD chlamydia trachomatis CT neg negati ve normal This repor t is inten ded for us in clini erin monit oring and manag ement of patie nts. It is not inten ded for use in medic al-le gal appli catio n. Not Available [address], [address], 07/19/2022 17:43:51 07/17/19 23 07/19/2022 CT/GC /TRIC H + HOLD neisseria gonorrhoeae GC neg negati ve normal This repor t is inten ded for us in clini erin monit oring and manag ement of patie nts. It is not inten ded for use in medic al-le gal appli catio n. Not Available [address], [address], 07/19/2022 17:43:51 07/17/19 23 07/25/2022 THINP REP TIS PAP clinical information: normal None given Not Available [facility] [address] [place], [address], 07/25/2022 11:06:29 07/17/19 23 07/25/2022 THINP REP TIS PAP LMP: normal NONE GIVEN Not Available [facility] [address] [place], [address], 07/25/2022 11:06:29 07/17/19 23 07/25/2022 THINP REP TIS PAP prev. Pap: normal NONE GIVEN Not Available [facility] [address] [place], [place] [address], [address], 07/25/2022 11:06:29 07/17/19 23 07/25/2022 THINP REP TIS PAP prev. BX: normal NONE GIVEN Not Available [address], [address], 07/25/2022 11:06:29 07/17/19 23 07/25/2022 THINP REP TIS PAP source: normal None given Not Available [address], [address], 07/25/2022 11:06:29 07/17/19 23 07/25/2022 THINP REP TIS PAP statement of adequacy: normal Satis facto ry for evalu ation . Endoc ervic al/tr ansfo rmati on zone compo nent prese nt. Age and/o r menst rual statu s not provi ded Not Available [address], [address], 07/25/2022 11:06:29 07/17/19 23 07/25/2022 THINP REP TIS PAP interpretati on/result: normal Negat joya for intra epith elial lesio n or malkristine arroyo . Not Available [address], [address], 07/25/2022 11:06:29 07/17/19 23 07/25/2022 THINP REP TIS PAP comment: normal This case could not be evalu ated with compu ter anette sara techn ology . The slide was kevin vallejo theresa accor ding to srikanth gonzalez . Not Available [address], [address], 07/25/2022 11:06:29 07/17/19 23 07/25/2022 THINP REP TIS PAP cytotechnolo gist: normal MMW, CT( CP) CT scree pepe locat ion: [address] [address] [place] [address] Not Available [address], [place], [address], 07/25/2022 11:06:29 07/17/19 23 07/25/2022 THINP REP TIS PAP review cytotechnolo gist: normal KMS, CT( CP) CT Scree pepe locat ion: [address] [address] [place] [address] Not Available [facility] [address], [place], [address], 07/25/2022 11:06:29 07/17/19 23 07/25/2022 THINP REP TIS PAP comment EXPLA NATYANELI Y NOTE: The Pap is a scree pepe test for cervi erin cance r. It is not a diagn ostic test and is subje ct to false negat joya and false posit joya resul ts. It is most relia ble when a satis facto ry sampl e, regul lias obtai theresa, is submi tted with relev ant clini erin findi ngs and histo ry, and when the Pap resul t is evalu ated along with histo chalo and curre nt clini erin infor matio n. Not Available [facility] [address], [place], [address], 07/25/2022 11:06:29 Result Notes None recorded. Procedures Surgical History Date Name Laterality Status Provider Name and Address Organization Details Recorded Time Date of Last Pap Smear completed Patricia Granger CNM [facility] [place], [address], [facility] 11/22/2023 20:00:46 Breast Reduction completed Kristine John [facility] [employer] [facility] 07/16/2022 13:33:40 operation on lumbar spine completed Dariela Kaba MD [facility] [place], [address], [facility] 07/16/2022 14:13:57 Imaging Results None recorded. Procedure Notes None recorded. Medical Equipment None Reported. Allergies No known drug allergies Medications Name Sig Start Date Stop Date Status Note LastModified by Organization Details LastModified Time ibuprofen 800 mg tablet TAKE 1 TABLET BY MOUTH EVERY 8 HOURS NEEDED 05/15 completed Not Available Not Available Not Available methocarbam ol 750 mg tablet TAKE 1 TABLET BY MOUTH EVERY 6 HOURS NEEDED FOR MUSCLE SPASMS 07/16 completed Not Available Not Available Not Available promethazin e 25 mg tablet TAKE 1 TABLET BY MOUTH EVERY 6 HOURS NEEDED 05/15 completed Not Available Not Available Not Available oxycodone 5 mg tablet TAKE 1 TABLET BY MOUTH EVERY 6 HOURS NEEDED FOR PAIN 07/16 completed Not Available Not Available Not Available Slynd 4 mg (28) tablet Take 1 tablet every day by oral route. active Not Available Not Available No t Available ID NOW COVID-19 Test Kit TEST DIRECTED TODAY 07/16 completed Not Available Not Available Not Available Vitals Date Recorded Body height Body mass index (BMI) Percentile per age and sex Body mass index (BMI) Body weight Body temperature Systolic blood pressure Diastolic blood pressure Provider Name and Address Organization Details Last Updated DateTime 2 167.64 cm 83 % 26.1 kg/m2 36430.8 1 g 97 [degF] 108 mm[Hg] 68 mm[Hg] Jen Osorioshukri [employer] [facility] 2 13:15:48 Date Recorded Body weight Body mass index (BMI) Body height Systolic blood pressure Diastolic blood pressure Provider Name and Address Organization Details Last Updated DateTime 07/16/2022 27387.68 g 23.6 kg/m2 165.1 cm 122 mm[Hg] 66 mm[Hg] Kristine John [employer] [facility] 3 13:39:59 Social History Question Answer Notes LastModified by Organizat ion Details LastModified Time Tobacco Smoking Status Never Smoker Dariela Kaba MD [address] [facility], [place], [address], [employer] [facility] 07/16/2022 14:13:25 What Is Your Level Of Alcohol Consumption? Occasional Information not available 07/16/2022 Are You Blind Or Do You Have Difficulty Seeing? No Information not available 07/16/2022 Are You Deaf Or Do You Have Serious Difficulty Hearing? No Information not available 07/16/2022 What Type Of Diet Are You Following? VEGETARIAN Information not available 07/16/2022 Which Illicit Or Recreational Drugs Have You Used? Marijuana Occasionally Information not available 07/16/2022 Do You Or Have You Ever Used E-cigarettes Or Vape? Never Used Electronic Cigarettes Information not available 07/16/2022 What Is The Highest Grade Or Level Of School You Have Completed Or The Highest Degree You Have Received? GO91001-2 In [employer] - [place] Information not available 07/16/2022 How Many Children Do You Have? -2 Information not available 07/16/2022 What Is Your Relationship Status? Single Information not available 07/16/2022 Are You Sexually Active? Yes cduft Information not available 05/15/2021 Do You Use Any Illicit Or Recreational Drugs? Yes Information not available 07/16/2022 Have You Used IV Drugs? No Information not available 07/16/2022 Do You Or Have You Ever Used Any Other Forms Of Tobacco Or Nicotine? No Information not available 07/16/2022 Sex: Unknown Functional Status Question Answer Note LastModified by Organization D etails LastModified Time What is your exercise level? Moderate Information not available 07/16/2022 Mental Status None recorded. Family History Relationship Description Onset Age of this Age Resolved Age Notes LastModified by Organization Details LastModified Time Father No current problems or disability Not available 07/16 13:36:14 Mother No current problems or disability Not available 07/16 13:36:14 Medical History Condition Response Other Cancer N High Blood Pressure N Colon Cancer N Cytomegalovirus N Hyperthyroidism N Breast Cancer N Herpes (HSV) N MRSA N Blood Transfusion N Lung Cancer N Hypothyroidism N Depression N Incontinence N Panic Attacks N Neurological Disorder N Deep Vein Thrombosis N Anxiety Disorder N Autoimmune disease N Arthritis N Tuberculosis/Positive PPD N Shingles N Polycystic Ovarian Syndrome N Cervical Cancer N Hematuria N Chlamydia N Varicosities N Stroke N Crohn's Disease N Seasonal allergies N Alzheimer's/Dementia N COPD/Emphysema N HPV/Genital Warts N Endometriosis N IBS (Irritable Bowel Syndrome) N History of Abnormal Pap N High Cholesterol N Liver Disease N Fibromyalgia N Kidney Infection N Ulcer N Kidney Disease N HIV N Gallbladder disease N Von Willebrand disease N Sickle Cell Disease/Trait N ADD/ADHD N Eating Disorder N Diabetes Mellitus (non-insulin dependent ) N Anemia N Ovarian Problems N Multiple Sclerosis N Gonorrhea N Frequent Urinary Tract infections N Osteopenia N Headaches/migraines N GERD (reflux) N Ovarian Cancer N Diabetes (insulin dependent) N Seizures/Epilepsy N Fibroids N Asthma N Heart Attack N Endometrial Cancer N Lupus N Rubella N Blood Clotting Disorder N Bipolar Disorder N Diabetes Mellitus (during ) N Ulcerative Colitis N Hepatitis N Heart Disease N Pulmonary Embolism N RPR N Chicken Pox N Osteoporosis N Gynecological History Statement/Question Response Date of Last Pap Smear 07/21/2022 Current Control Method BCPs Age at Menarche 13 Date of LMP 05/12/2022 Obstetrics History GPAL:G 2 P 0 0 2 0 Type Value Induced 2 Total 2 Past Encounters Encounter ID Performer Location Encounter Start Date Encounter Closed Date Diagnosis/Indication Diagnosis SNOMED-CT Code Diagnosis ICD10 Code Diagnosis Note [id number] Ave coronado CNM [facility] [address] [place] [address] 05/15/2021 12:48:14 06/01/2021 11:20:00 Contraception care 566306180 Z30.09 reviewed LARC, SHAKILA, POP and Xulaine desires POP (same as mom takes) [id number] Dariela Kaba MD [facility] [address] [place] [address] 07/16/2022 12:37:19 07/16/2022 14:45:03 Gynecologic examination 60240758 Z01.419 Screening for malignant neoplasm of cervix 634418723 Z12.4 Discussed STD screening and safe sex. Surveillan ce of contraception 115461098 Z30.41 doing well on Slynd and will continue this pill. Stressed compliance /correct usage to prevent unintended Health Concerns Section Related Observation LastModified by Organization Detai ls LastModified Time None Recorded Concern Status LastModified by Organization Details LastModified Time None Recorded Advance Directives Directive None Recorded Payers Encounter Date Sequence Insurance Name Policy Number Policy [place] Covered Member ID [place] Member ID Guarantor Name 05/15/2021 1 [place] [id number] Tanika Kan [id number] Ivy Hicks 07/16/2022 1 [place] [id number] Tanika Kan [id number] Ivy Hicks Notes Date Note Type Note Provider Name and Address Organization Details Recorded Time 05/15/2021 text/html Contraception visitReported bypatient.Type of Contraceptionnone Sexual HistorySexually active Menstrual cycle:Normal menses Pt would like to discuss control options. Ave Huynh CNM [address] [place] [address], [place], [address], [facility] [employer] 05/15/2021 13:36:44 07/16/2022 text/html Ivy Hicks is being seen today for an annual exam with her first pap smear. She saw Ave last year and was started on Slynd control. She reports doing well on this pill and mostly has no periods. She desires to continue this pill.She requests STD testing today with her papShe is a college student at [employer] studying Human Resources. She graduated from [employer].She is a nonsmoker. Does admit to using Marijuana occasionally Dariela Kaba MD [address] [place] [address], [place], [address], [facility] [employer] [facility] 07/16/2022 14:20:42 OBGyn Episode Ob Episode Information Episode Created Date Number of Fetuses Patient Bloodtype Patient rh Status Prepregnancy Weight lbs Domestic Partner Domestic Partner Phone Father Name Aeronautical Design Engineer Status 05/15/19 22 1 CLOSED Fetus Data First Name Last Name Admitted to NICU Weight (g) Sex Living Outcome Pediatric Complications Fetus ID Race Codes Race Delivery Type , Induced [id number] Rajesh Calculation Initial Rajesh Date Initial Exam Date Initial Exam Provider Initial Ultrasound Date Last Menstrual Period Date Ultra Sound Weeks Gestation 0 Eighteen To Twenty Week Rajesh Update Ultra Sound Date Fundal Height At Umbil Quickening Date Ultra Sound Latest Weeks Gestation Final Rajesh Confirmed By Final Rajesh Confirmed Date Final Rajesh Date Ultra Sound Latest Days Gestation 0 0 Menstrual History Last Menstrual Date Menses Monthly On Bcp Conception Prior Menses Frequency Hcg Plus Date Menarche Onset Age Delivery Information Delivery Date Delivery Type Labor Anesthesia Weeks Gestation Incision Type Labor Labor Length Hrs Delivered By Post Complications Tubal Sterilization Discharge Date Comments 2 Discharge Information Feeding Method Contraceptive Method Maternal HG B and HCT Levels
--- OUTSIDE RECORDS SUMMARY | 2024-07-08 19:01 | XMS_ITS | Clinical Summary ---
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 Gender Identity Not on file Sexual Orientation Not on file Plan of Treatment Health Maintenance Due Date Last Done Comments Hepatitis C Virus (HCV) Screening 2000 Meningococcal B Immunization (2 of 2 - Bexsero SCDM 2-dose series) 09/24/2019 03/26/2019 Pap Smear 2021 Influenza Immunization (#1) 2023 05/23/2013, 1 SARS-COV-2 Immunization ( season) 2023 Respiratory Syncytial Virus (RSV) Immunization (Adult) (1 - 1-dose 75+ series) 12/28/2075 Hepatitis B Immunization Completed 002, 03/02/2001, 2000 Pneumococcal Immunization Combined Completed 11/18/2004, 04/30/2001, 03/02/2001 DTaP/Tdap/Td Immunization Discontinued 2011, 08/09/2005, 05/10/2002, Additional history exists TdaP Immunization Completed 11/22/2011 Meningococcal Immunization (ACWY) Aged Out 05/23/2013 No longer eligible based on patient's age to complete this topic Human Papillomavirus (HPV) Immunization Completed 04/02/2015, 12/11/2014, 05/23/2013 Rotavirus Immunization Aged Out No lo nger eligible based on patient's age to complete this topic Insurance ([address] [address] [employer] on file
--- OUTSIDE RECORDS SUMMARY | 2024-07-08 19:01 | XMS_ITS | Clinical Summary ---
Author Organization [facility] Address [address] [place] [address] Care Team Providers Care Gardener Florist Name Role Phone Carolyne Lee PA-C Primary Care Provider Source Comments [facility],non-owned Affiliates and Associated Physician Practices is amultiple site organization consisting of ambulatory clinics and hospital sitesin [place], [place], [place] and [place]. This disclosure is being madepursuant to the Care Everywhere program and may not contain all information available regarding this patient. Last updated 18.[facility] Allergies No known active allergies Medications * [...] 11/18/2004,04/30/2001 TDAP, HISTORIC VACCINE 11/22/2011 VARICELLA 04/08/2009,01/28/2002 Family History Medical History Relation Name Comments Skin problem Brother 1 abscess on butt ocks Eczema Brother 2 Anesthesia Reaction Neg Hx Relation Name Status Comments Brother 1 Brother 2 Social History Tobacco Use Types Packs/Day Years [...] Mass Index 23.3 01/06/2022 2:11 PM CDT Plan of Treatment Health Maintenance Due Date Last Done Comments PAP SMEAR 2000 HIV SCREENING 12/28/2015 CHLAMYDIA/GONORRHEA SCREENING 2016 HEPATITIS C SCREENING 12/23/2018 MENINGOCOCCAL (Group B) VACC INE (2 of 2 - Bexsero SCDM 2-dose series) 09/24/2019 03/26/2019 DTAP/TDAP/TD VACCINES (7 - T d or Tdap) 11/21/2021 11/22/2011, 08/09/2005, 05/10/2002, Additional history exists COVID-19 VACCINE ( - 2023-2 5 season) 2023 INFLUENZA VACCINE (#1) 2023 , 06/03/2010, 02/12/2009, Additional history exists DEPRESSION SCREENING 05/01/2024 ZOSTER VACCINE (1 of 2) 2050 HEPATITIS B VACCINE Completed 07/24/2001, 03/02/2001, 2000 HIB VACCINE Completed 05/10/2002, 06/30, 04/30/2001, Additional history exists PNEUMOCOCCAL VACCINE Completed 11/18/2004, 04/30/2001, 03/02/2001 HPV VACCINE Completed 04/02/2015, 11/29, 05/23/2013 MENINGOCOCCAL VACCINE Completed 03/25/2019, 014 Medical Devices Implanted Type Area Camp Coordinator Device Identifier Shelf Expiration Date Model / Serial / Lot Kit Bone Cmnt Vertaplex Hv Autoplex Wo Implanted:Qty: 2 on 12/03/2021 by Eldon Alexander MD at [facility] N/A: Spine Lumbar Willis Spine 05/31/2023 0607-687-0 00 / / [place] 5.0mm Spinejack Case Kit Implanted:Qty: 1 on 12/03/2021 by Eldon Alexander MD at [facility] N/A: Spine Lumbar 02/29/2024 0909-000-0 50 / 0909-000-0 50 / Willis 4.2mm Spinejack Case Kit Implanted:Qty: 1 on 12/03/2021 by Eldon Alexander MD at [facility] N/A: Spine Lumbar 09/28/2022 0909-000-0 42 / [id number] 42 / Advance Directives * Full Code (Latest Code Status on File) Date Activated Date Inactivated Comments 11/28/2021 11:32 PM 12/05/2021 7:09 PM Care Teams Gardener Florist Relationship Specialty Start Date End Date Carolyne Lee PA-C [address] [place] [phone] PCP - General Physician Magnet Placer 07/09/21
--- OUTSIDE RECORDS SUMMARY | 2024-07-08 19:21 | XMS_ITS | Clinical Summary ---
Author Organization [facility] Address [address] [place] [address] Care Team Providers Care Spectrographer Name Role Phone Unavailable Primary Care Provider Unavailabl e Social History Tobacco Use Types Packs/Day Years Used Date Smoking Tobacco: Never Assessed Comments Unknown Sex and Gender Information Value Date Recorded Sex Assigned at Not on file Legal Sex Female 10:49 AM ONCOLOGY ADMIN Gender Identity Not on file Sexual Orientation [...] patient's age to complete this topic Insurance ([address] [address] [employer] on file
--- OUTSIDE RECORDS SUMMARY | 2024-07-08 19:21 | XMS_ITS | Clinical Summary ---
Author Organization [facility] [employer] Address [address] [place] [address] Care Team Providers Care Spacer Type Bar And Segment Name Role Phone Carolyne Lee PA-C Primary Care Provider Source Comments [facility],non-owned Affiliates and Associated Physician Practices is amultiple site organization consisting of ambulatory clinics and hospital sitesin [place], [place], [place] and [place]. This disclosure is being madepursuant to the Care Everywhere program and may not contain all information available regarding this patient. Last updated 18.[facility] [employer] Allergies No known active allergies Medications * [...] 03/25/2019, 014 Medical Devices Implanted Type Area Physical Trainer Device Identifier Shelf Expiration Date Model / Serial / Lot Kit Bone Cmnt Vertaplex Hv Autoplex Wo Implanted:Qty: 2 on 12/03/2021 by Eldon Alexander MD at [facility] N/A: Spine Lumbar Willis Spine 05/31/2023 0607-687-0 00 / / [place] 5.0mm Spinejack Case Kit Implanted:Qty: 1 on 12/03/2021 by Eldon Alexander MD at [facility] N/A: Spine Lumbar 02/29/2024 0909-000-0 50 / 0909-000-0 50 / Willis 4.2mm Spinejack Case Kit Implanted:Qty: 1 on 12/03/2021 by Eldon Alexander MD at [facility] N/A: Spine Lumbar 09/28/2022 0909-000-0 42 / [id number] 42 / Advance Directives * Full Code (Latest Code Status on File) Date Activated Date Inactivated Comments 11/28/2021 11:32 PM 12/05/2021 7:09 PM Care Teams Spacer Type Bar And Segment Relationship Specialty Start Date End Date Carolyne Lee PA-C [address] [place] [phone] PCP - General Physician Junior Graphic Designer 07/09/21
--- OUTSIDE RECORDS SUMMARY | 2024-07-08 19:21 | XMS_ITS | Patient Health Summary ---
Author Organization [facility] Address [address] [place] [address] Care Team Providers Care Shop Assistant Name Role Phone Carolyne Lee PA-C Primary Care Provider Note from [facility],non-owned Affiliates and Associated Physician Practices is amultiple site organization consisting of ambulatory clinics and hospital sitesin [place], [place], [place] and [place]. This disclosure is being madepursuant to the Care Everywhere program and may not contain all information available regarding this patient. Last updated 18.[facility] Allergies No known active allergies Medications * [...] PM CDT Medical Devices Implanted Type Area Software Development Project Manager Device Identifier Shelf Expiration Date Model / Serial / Lot Kit Bone Cmnt Vertaplex Hv Autoplex Wo Implanted:Qty: 2 on 12/03/2021 by Eldon Alexander MD at [facility] N/A: Spine Lumbar [place] Spine 05/31/2023 [id number] 00 / / Willis 5.0mm Spinejack Case Kit Implanted:Qty: 1 on 12/03/2021 by Eldon Alexander MD at [facility] N/A: Spine Lumbar 02/29/202409-000-0 50 / 000-0 50 / [place] 4.2mm Spinejack Case Kit Implanted:Qty: 1 on 12/03/2021 by Eldon Alexander MD at [facility] N/A: Spine Lumbar 09/28/2022 [id number] [...] fracture of first lumbar vertebra, initial encounter ([facility]) * [place] DAVID SURGERY(Performed 12/03/2021) Performed for [...] Trauma * ENDOTRACHEAL TUBE NOTE(Performed 07/14/2021) * [place] BREAST REDUCTION(Performed 07/14/2021) Performed for Hypertrophy of [...] DATE/TIME OF EXAM: 01/06/2022 2:05 PM, LOCATION [facility] INDICATION: S42.012A: Anterior displaced fracture of sternal [...] alignment. Report dictated by Marina Juarez MD (residential sales manager). > Dictated by Marina Juarez (Glass Frame Fitter) 01/06/2022 3:00 PM LARY Perales MD have personally reviewed and interpreted this examination/study. > Interpreting Provider: LARY WALL MD on 01/06/2022 3:08 PM Procedure Note Lary Wall MD - 01/06/2022 PROCEDURE: XR CLAVICLE LEFT 2VW, DATE/TIME OF EXAM: 01/06/2022 2:05 PM, LOCATION [facility] INDICATION: S42.012A: Anterior displaced fracture of sternal [...] alignment. Report dictated by Marina Juarez MD (residential sales manager). > Dictated by Marina Juarez (Glass Frame Fitter) 01/06/2022 3:00 PM LARY Perales MD have [...] - 10.5 10 3/uL 12/05/2021 3:33 AM [facility] RBC 4.28 3.80 - 5.20 10 6/uL 12/05/2021 3:33 AM [facility] Hemoglobin 10.3(L) 12.0 - 15.6 g/dL 12/05/2021 3:33 AM [facility] Hematocrit 32.4(L) 35.0 - 45.0 % 12/05/2021 3:33 AM [facility] MCV 75.7(L) 80.7 - 98.3 fL 12/05/2021 3:33 AM [facility] MCH 24.1(L) 26.7 - 34.0 pg 12/05/2021 3:33 AM [facility] MCHC 31.8 30.8 - 35.9 g/dL 12/05/2021 3:33 AM [facility] Platelet Count 412(H) 150 - 400 10 3/uL 12/05/2021 3:33 AM [facility] RDW-SD 45.7 36.0 - 50.0 fL 12/05/2021 3:33 AM [facility] RDW-CV 16.9(H) 11.2 - 14.8 % 12/05/2021 3:33 AM [facility] MPV 9.2(L) 9.4 - 12.9 fL 12/05/2021 3:33 AM [facility] nRBC Absolute 0.00 0 10 3/uL 12/05/2021 3:33 AM [facility] nRBC Auto 0.0 0 /100 WBC 12/05/2021 3:33 AM [facility] Blood BLOOD SPECIMEN / Unknown Lab Venipuncture / Unknown 12/05/2021 3:02 AM CDT 12/05/2021 3:28 AM CDT Hernan Tejada MD LAB - HEMATOLOGY OR DERABLES [facility] [address] [place] [address], [facility] [phone] * (ABNORMAL) BASIC METABOLIC PANEL (CALCIUM TOTAL) (12/05/2021 3:02 AM T) Only the most recent of4 resultswithin the time period is included. BUN 10 7 - 26 mg/dL 12/05/2021 4:00 AM [facility] Creatinine 0.46(L) 0.56 - 0.96 mg/dL 12/05/2021 4:00 AM [facility] Sodium 139 136 - 145 mmol/L 12/05/2021 4:00 AM [facility] Potassium 4.3 3.5 - 4.5 mmol/L 12/05/2021 4:00 AM [facility] Chloride 106 98 - 107 mmol/L 12/05/2021 4:00 AM [facility] CO2 20(L) 22 - 29 mmol/L 12/05/2021 4:00 AM [facility] Glucose 91 70 - 115 mg/dL 12/05/2021 4:00 AM [facility] Calcium 9.3 8.4 - 10.2 mg/dL 12/05/2021 4:00 AM [facility] Anion Gap 17 8 - 18 12/05/2021 4:00 AM [facility] BUN/Creatinine Ratio 22 7 - 23 12/05/2021 4:00 AM [facility] Osmolality Calculated 287 270 - 300 mOsm/kg 12/05/2021 4:00 AM [facility] eGFR by CKD-EPI >90 >=90 mL/min/1.7 3 m2 12/05/2021 4:00 AM CDT [facility] Blood BLOOD SPECIMEN / Unknown Lab Venipuncture / Unknown 12/05/2021 3:02 AM CDT 12/05/2021 3:25 AM CDT Hernan Tejada MD LAB - CHEMISTRY ORD ERABLES [address] [address], [place] [phone] * PHOSPHORUS BLOOD (12/05/2021 3:02 AM CDT) Only the most recent of6 resultswithin the time period is included. Phosphorus 4.5 2.9 - 5.1 mg/dL 12/05/2021 4:00 AM CDT [facility] Blood BLOOD SPECIMEN / Unknown Lab Venipuncture / Unknown 12/05/2021 3:02 AM CDT 12/05/2021 3:25 AM CDT Hernan Tejada MD LAB - CHEMISTRY ORD ERABLES Performing Organization Address [facility]/ZIP Co de Phone Number [address] [address], [place] [phone] * MAGNESIUM BLOOD (12/05/2021 3:02 AM CDT) Only the most recent of6 resultswithin the time period is included. Magnesium 2.0 1.6 - 2.6 mg/dL 12/05/2021 4:00 AM CDT [facility] Blood BLOOD SPECIMEN / Unknown Lab Venipuncture / Unknown 12/05/2021 3:02 AM CDT 12/05/2021 3:25 AM CDT Hernan Tejada MD LAB - CHEMISTRY ORD ERABLES [address] [address], [place] [phone] * CT LUMBAR SPINE WO CONTRAST (12/03/2021 [...] DATE/TIME OF EXAM: 12/03/2021 7:00 PM, LOCATION [facility] INDICATION: S32.011A: Closed stable burst fracture of [...] CONTRAST, DATE/TIME OF EXAM: 27:00 PM, LOCATION [facility] INDICATION: S32.011A: Closed stable burst fracture of [...] DAVID SURGERY (12/03/2021 5:40 PM CDT) Narrative [facility] RAD[facility]OLOG[facility] - 12/03/2021 7:38 PM CDT Fluoroscopy was used for this exam in the OR. Please see the Operative report. Eldon Alexander MD FLUOROSCOPY ORDE RABLES [facility] * IV PLACEMENT PERFORMABLE (12/03/2021 4:13 PM CDT) Johnny Rodriguez MD - 12/03/2021 4:13 PM CDT Johnny Dumont MD 12/03/2021 4:14 PM Peripheral IV Line Placement: Patient Location: OR Procedure: IV start (06028). Procedure Section: Skin Prep: alcohol. Orientation: left [...] Event Date/Time: 12/03/2021 3:33 PM Procedure: intubation (15846). Procedure Section: Sedation: under general anesthesia. Indications [...] included. Antibody Screen NEG 3:[address] [facility] ABO Rh B POS 12/03/2021 3:[address] [facility] Comment:This is a corrected result. Previous result was B POS, y on 12/03/2021 at 1535 CDT Blood Bank BLOOD SPECIMEN / Unknown Venipuncture / Unknown 12/03/2021 2:44 PM CDT 12/03/2021 2:51 PM CDT Reyes Zapata MD LAB - BLOOD BANK ORD ERABLES [facility] [address] [place] [address], [facility] [phone] * (ABNORMAL) COMPREHENSIVE METABOLIC PANEL (12/03/2021 2:48 AM CDT) Only the most recent of5 resultswithin the time period is included. BUN 7 7 - 26 mg/dL 12/03/2021 5:17 AM [facility] Creatinine 0.54(L) 0.56 - 0.96 mg/dL 12/03/2021 5:17 AM [facility] Sodium 137 136 - 145 mmol/L 12/03/2021 5:17 AM [facility] Potassium 3.9 3.5 - 4.5 mmol/L 12/03/2021 5:17 AM [facility] Chloride 103 98 - 107 mmol/L 12/03/2021 5:17 AM [facility] CO2 22 22 - 29 mmol/L 12/03/2021 5:17 AM [facility] Glucose 82 70 - 115 mg/dL 12/03/2021 5:17 AM [facility] Calcium 9.7 8.4 - 10.2 mg/dL 12/03/2021 5:17 AM [facility] Protein Total 7.5 6.0 - 8.3 g/dL 12/03/2021 5:17 AM [facility] Albumin 3.6 3.4 - 5.0 g/dL 12/03/2021 5:17 AM [facility] Bilirubin Total 0.6 0.2 - 1.2 mg/dL 12/03/2021 5:17 AM [facility] Alkaline Phosphatase 65 40 - 150 U/L 12/03/2021 5:17 AM [facility] ALT 72(H) 5 - 55 U/L 12/03/2021 5:17 AM [facility] AST 32 5 - 34 U/L 12/03/2021 5:17 AM [facility] Anion Gap 16 8 - 18 12/03/2021 5:17 AM [facility] BUN/Creatinine Ratio 13 7 - 23 12/03/2021 5:17 AM [facility] Osmolality Calculated 281 270 - 300 mOsm/kg 12/03/2021 5:17 AM [facility] Albumin/Globulin Ratio 0.9(L) 1.1 - 2.3 12/03/2021 5:17 AM [facility] eGFR by CKD-EPI >90 >=90 mL/min/1.7 3 m2 12/03/2021 5:17 AM [facility] Blood BLOOD SPECIMEN / Unknown Lab Venipuncture / Unknown 12/03/2021 2:48 AM CDT 12/03/2021 4:44 AM CDT Hernan Tejada MD LAB - CHEMISTRY ORD ERABLES [facility] [address] [place] [address], [facility] [phone] * XR CHEST 1VW PORTABLE (12/01/2021 8:22 AM CDT) Only the most recent of4 resultswithin the time period is included. Anatomical Region Laterality Modality Chest Radiographic Mehnaz ging 12/01/2021 9:17 AM CDT Narrative 12/01/2021 12:17 PM CDT PROCEDURE: XR CHEST 1VW PORTABLE, DATE/TIME OF EXAM: 12/01/2021 8:39 AM, LOCATION [facility] INDICATION: T14.90XA: Trauma ADDITIONAL CLINICAL INFORMATION: Ordering [...] normal. Report dictated by Suly Mendoza MD (residential sales manager). Sapphire Perales MD have personally reviewed and interpreted this examination/study. > Interpreting Provider: Sapphire Terry MD on 12/01/2021 12:17 PM Procedure Note Sapphire Terry MD - 12/01/2021 PROCEDURE: XR CHEST 1VW PORTABLE, DATE/TIME OF EXAM: 12/01/2021 8:39 AM, LOCATION [facility] INDICATION: T14.90XA: Trauma ADDITIONAL CLINICAL INFORMATION: Ordering [...] normal. Report dictated by Suly Mendoza MD (residential sales manager). Sapphire Perales MD have personally reviewed and interpreted this examination/study. > Interpreting Provider: Sapphire Terry MD on 2:17 PM Namrata Bob [employer]ER-OUTSIDE UPHOLSTERER DIAGNOSTIC IMAGIN G ORDERABLES * EKG 12-LEAD (11/29/2021 9:38 PM CDT) Only the most recent of2 resultswithin the time period is included. Ventricular Rate 72 BPM [facility] Atrial Rate [address] [facility] M[facility] P-R Interval [address] [facility] QRS Duration ms [address] [facility] M[facility] Q-T Interval ms [address] [facility] M[facility] QTC Calculation (Bezet) [address] [facility] M[facility] Calculated P Mcfarland 47 degrees [facility] Calculated R Mcfar[place] 44 degrees [facility] Calculated T Mcfarland 5 degrees [facility] Interpretation EKG NORMAL SINUS RHYTHM NORMAL ECG NO PREVIOUS ECGS AVAILABLE Confirmed by MD WILKES STEPHANIE ([id number]) on 12/02/2021 3:26:01 PM [facility] 11/29/2021 9:38 PM CDT 12/02/2021 3:26 PM CDT Shilo Connolly MD ECG ORDERABLES [facility] MUSE * MRI LUMBAR SPINE WO CONTRAST [...] UA Yellow Straw, Yellow 11/29/2021 12:39 AM [facility] Clarity UA Slt Cloudy(A) Clear 11/29/2021 12:39 AM [facility] Specific [place] UA >1.060(H) 1.005 - 1.030 11/29/2021 12:39 AM [facility] pH UA 6.0 5.0 - 8.0 pH 11/29/2021 12:39 AM [facility] Protein UA Negative Negative 11/29/2021 12:39 AM [facility] Glucose UA Negative Negative 11/29/2021 12:39 AM [facility] Ketone UA 1+(A) Negative 11/29/2021 12:39 AM [facility] Bilirubin UA Negative Negative 11/29/2021 12:39 AM [facility] Blood UA 1+(A) Negative 11/29/2021 12:39 AM [facility] Nitrite UA Negative Negative 11/29/2021 12:39 AM [facility] Leukocyte Esterase 2+(A) Negative 11/29/2021 12:39 AM [facility] Urobilinogen UA Negative Negative mg/dL 11/29/2021 12:39 AM [facility] RBC UA 11-20(A) None Seen, 0-2, 3-5 /HPF 11/29/2021 12:39 AM [facility] WBC UA 11-20(A) None Seen, 0-5 /HPF 11/29/2021 12:39 AM [facility] Squamous Epithelial Cells UA 11-20(A) None Seen, 0-2, 3-5 /HPF 11/29/2021 12:39 AM [facility] Mucus UA 1+ /LPF 11/29/2021 12:39 AM [facility] Urine URINE SPECIMEN OBTAINED BY CLEAN CATCH PROCEDURE / Unknown Collection / Unknown 11/29/2021 12:12 AM CDT 11/29/2021 12:23 AM [facility] - 11/29/2021 12:39 AM CDT Callum Padilla MD LAB - URINALYSIS OR DERABLES Performing Organization Address City/State/[facility] Co de Phone Number [facility] [address] [place] [address], [facility] [phone] * URINE DRUG SCREEN IMMUNOASSAY (11/29/2021 12:12 AM T) [facility] Amphetamines Screen Urine Negative Negative: < 1000 ng/mL 11/29/2021 12:44 AM [facility] Barbiturates Screen Urine Negative Negative: < 200 ng/mL 11/29/2021 12:44 AM [facility] Benzodiazepine Screen Urine Negative Negative: < 200 ng/mL 11/29/2021 12:44 AM [facility] Opiates Urine Negative Negative: < 300 ng/mL 11/29/2021 12:44 AM [facility] Cocaine Metabolites Urine Negative Negative: < 300 ng/mL 11/29/2021 12:44 AM [facility] Phencyclidine Screen Urine Negative Negative: < 25 ng/ml 11/29/2021 12:44 AM CDT [facility] Cannabinoids Screen Urine Negative Negative: <50 ng/mL 11/29/2021 12:44 AM CDT [facility] Methadone Screen Urine Negative Negative: < 300 ng/mL 11/29/2021 12:44 AM CDT [facility] Fentanyl Screen Urine Negative Negative: <1.5 ng/mL 11/29/2021 12:44 AM CDT [facility] Urine URINE / Unknown Collection / Unknown 11/29/2021 12:12 AM CDT 11/29/2021 12:23 AM CDT Narrative [facility] - 11/29/2021 12:44 AM CDT The Urine Toxicology Screening Panel does not screen for Propoxyphene, Meprobamate, Carisoprodol, Trazodone, [id number] medications and/or volatiles (Acetone, Isopropanol, Methanol or Ethylene Glycol). Ethanol, Salicylate, Acetaminophen, Tricyclic Antidepressants and several therapeutic drugs may be individually assayed in serum or plasma specimen. Toxicology testing by the [facility] is an aid to medical diagnosis and treatment of patients. No documented chain of custody was maintained. Results are intended to be used for clinical purposes only. Callum Padilla MD LAB - URINE CARTON MAKING MACHINIST RY ORDERABLES [facility] [address] [place] [address], [facility] [phone] * CT THORACIC SPINE WO CONTRAST (11/28/2021 [...] effusion/hemothorax. Report drafted by Estevan Rogers MD (Glass Frame Fitter). I, Dr. SHANE TAVERA have personally reviewed [...] effusion/hemothorax. Report drafted by Estevan Rogers MD (Glass Frame Fitter). Dr. SHANE Perales have personally reviewed and [...] effusion/hemothorax. Report drafted by Estevan Rogers MD (Glass Frame Fitter) Dr. SHANE Perales have personally reviewed and [...] left pleural effusion/hemothorax are partly in the [id number]. No contrast pooling is demonstrated in the [...] left pleural effusion/hemothorax are partly in the [id number]. No contrast pooling is demonstrated in the [...] effusion/hemothorax. Report drafted by Estevan Rogers MD (Glass Frame Fitter) IDr. SHANE have personally reviewed and interpreted this examination/study. This report was electronically signed by SHANE TAVERA on 11/29/2021 8:52 AM . Callum Padilla MD CT ORDERABLES * BLOOD TYPE VERIFICATION (11/28/2021 8:47 PM CDT) ABO Rh B POS 11/28/2021 9:[address] [facility] Blood Bank BLOOD SPECIMEN / Unknown Venipuncture / Unknown 11/28/2021 8:47 PM CDT 11/28/2021 8:50 PM CDT Ondina Burch MD LAB - BLOOD BANK ORD ERABLES [facility] [address] [place] [address], [facility] [phone] * (ABNORMAL) PTT [facility] (11/28/2021 8:37 PM CDT) APTT 22.6(L) 23.0 - 38.4 Seconds 11/28/2021 9:[address] [facility] Comment:Suggested therapeuti c range for full dose I.V. unfractionated heparin therapy for venous thromboembolism is 71 to 109 seconds. Blood BLOOD SPECIMEN / Unknown Venipuncture / Unknown 11/28/2021 8:37 PM CDT 11/28/2021 8:40 PM CDT Callum Padilla MD LAB - COAGULATION O FRANCIA Performing Organization Address City/[facility]/ZIP Co de Phone Number [facility] [address] [place] [address], [facility] [phone] * (ABNORMAL) PT-INR [facility] (11/28/2021 8:37 PM CDT) PT 15.0(H) 12.1 - 14.8 Seconds 11/28/2021 9:06 PM CDT [facility] INR 1.2 See Comment 11/28/2021 9:06 PM CDT [facility] Comment:The suggested therap eutic range for standard coumadin (warfarin) therapy is an INR of 2.0-3.0. For high-risk patients (Mechanical Mitral Valve Prosthesis, etc.), the suggested prophylactic therapeutic range is an INR of 2.5-3.5. Blood BLOOD SPECIMEN / Unknown Venipuncture / Unknown 11/28/2021 8:37 PM CDT 11/28/2021 8:40 PM CDT Callum Padilla MD LAB - COAGULATION O FRANCIA Performing Organization Address City/[facility]/ZIP Co de Phone Number [facility] [address] [place] [address], [facility] [phone] * (ABNORMAL) CBC W AUTO DIFFERENTIAL (11/28/2021 8:37 PM CDT) WBC 10.3 3.5 - 10.5 10 3/uL 11/28/2021 8:[address] [facility] RBC 4.01 3.80 - 5.20 10 6/uL 11/28/2021 8:[address] [facility] Hemoglobin 9.6(L) 12.0 - 15.6 g/dL 11/28/2021 8:[address] [facility] Hematocrit 30.6(L) 35.0 - 45.0 % 11/28/2021 8:47 PM CDT [facility] MCV 76.3(L) 80.7 - 98.3 fL 11/28/2021 8:47 PM [facility] MCH 23.9(L) 26.7 - 34.0 pg 11/28/2021 8:47 PM [facility] MCHC 31.4 30.8 - 35.9 g/dL 11/28/2021 8:47 PM [facility] Platelet Count 281 150 - 400 10 3/uL 11/28/2021 8:47 PM [facility] RDW-SD 46.5 36.0 - 50.0 fL 11/28/2021 8:47 PM [facility] RDW-CV 16.7(H) 11.2 - 14.8 % 11/28/2021 8:47 PM [facility] MPV 10.0 9.4 - 12.9 fL 11/28/2021 8:47 PM [facility] nRBC Absolute 0.00 0 10 3/uL 11/28/2021 8:47 PM [facility] nRBC Auto 0.0 0 /100 WBC 11/28/2021 8:47 PM [facility] Neutrophils % 79.3(H) 35.0 - 70.0 % 11/28/2021 8:47 PM [facility] Lymphocytes % 12.5(L) 20.0 - 43.0 % 11/28/2021 8:47 PM [facility] Monocytes % 7.3 5.0 - 13.0 % 11/28/2021 8:47 PM [facility] Eosinophils % 0.2 0.0 - 6.0 % 11/28/2021 8:47 PM [facility] Basophil % 0.3 0.0 - 2.0 % 11/28/2021 8:47 PM [facility] Neutrophils Absolute 8.17(H) 1.60 - 7.00 10 3/uL 11/28/2021 8:47 PM [facility] Lymphocyte Absolute 1.29 1.10 - 3.90 10 3/uL 11/28/2021 8:47 PM [facility] Monocytes Absolute 0.75 0.26 - 1.07 10 3/uL 11/28/2021 8:[address] [facility] Eosinophils Absolute 0.02 0.00 - 0.47 10 3/uL 11/28/2021 8:47 PM CDT [facility] Basophils Absolute 0.03 0.00 - 0.08 10 3/uL 11/28/2021 8:47 PM CDT [facility] Immature Granulocytes % 0.4 0.0 - 1.0 % 11/28/2021 8:47 PM CDT [facility] Immature Granulocytes Absolute 0.04 11/28/2021 8:47 PM CDT [facility] Blood BLOOD SPECIMEN / Unknown Venipuncture / Unknown 11/28/2021 8:37 PM CDT 11/28/2021 8:40 PM CDT Callum Padilla MD LAB - HEMATOLOGY OR DERABLES Performing Organization Address City/[facility]/ZIP Co de Phone Number [address] [address], [facility] [phone] * HCG BETA BLOOD QUANTITATIVE (11/28/2021 8:37 PM CDT) [facility] Beta-hCG Total Quantitative <3 mIU/mL 11/28/2021 9:26 PM CDT [facility] Comment: This assay is cleared for [...] Padilla MD LAB - CHEMISTRY ORD ERABLES [address] [address], [facility] [phone] * LIPASE BLOOD (11/28/2021 8:37 PM CDT) Lipase 22 8 - 78 U/L 11/28/2021 9:14 PM CDT [facility] Blood BLOOD SPECIMEN / Unknown Venipuncture / Unknown 11/28/2021 8:37 PM CDT 11/28/2021 8:40 PM CDT Callum Padilla MD LAB - CHEMISTRY ORD ERABLES Performing Organization Address City/[facility]/ZIP Co de Phone Number [address] [address], [facility] [phone] * ALCOHOL ETHYL BLOOD (11/28/2021 8:37 PM CDT) Ethanol (mg/dL) <10 <10 mg/dL 9:14 PM CDT [facility] Ethanol Calculated (g/dL) <0.010 <=0.010 g/dL 11/28/2021 9:14 PM CDT [facility] Blood BLOOD SPECIMEN / Unknown Venipuncture / Unknown 11/28/2021 8:37 PM CDT 11/28/2021 8:40 PM CDT Narrative [facility] - 11/28/2021 9:14 PM CDT Ethanol Interp <10: None Detected. Depression of ASSESSOR: >100 mg/dl Potentially Critical: >250 mg/dl Potentially [...] - CHEMISTRY ORD ERABLES Performing Organization Address City/[facility]/ZIP Co de Phone Number [address] [id number], [facility] [phone] * XR PELVIS 1 OR 2VW (11/28/2021 8:36 PM CDT) Anatomical Region Laterality Modality Pelvis Radiographic Mehnaz ging 11/28/2021 9:24 PM CDT Impressions 11/28/2021 9:56 PM CDT IMPRESSION: No acute fracture or dislocation identified. Report drafted by Estevan Rogers MD (Glass Frame Fitter). Dr. MARCIO Perales have personally reviewed and [...] identified. Report drafted by Estevan Rogers MD (Glass Frame Fitter). Dr. MARCIO Perales have personally reviewed and [...] Event Date/Time: 07/14/2021 12:04 PM Procedure: intubation ([id number]). Procedure Section: Sedation: under general anesthesia. Indications [...] PM. Staff Section Anesthesia Provider: Bonny Chapa APRN-WIRE STOCKKEEPER, Performed the procedure Provider #1: Clarita Felder MD. Additional Comments: Placed by ER fellow.. Clarita Felder MD GENERAL ANESTHESIA O RDERABLES * PATHOLOGY TISSUE EXAM (STL) (07/14/2021 11:00 AM CDT) Case Report Surgical Pathology Report Case: [id number] Authorizing Provider: Mary Randhawa MD Collected: 07/14/2021 11:00 AM Ordering Location: [facility] Received: 07/15/2021 07:23 AM Pathologist: Jean Paul Morel MD Specimens: A) - Breast Reduction, right breast reduction B) - Breast Reduction, left breast reduction 07/19/2021 12:51 PM T [facility] Final Diagnosis A) Breast, Right, Excision: - No significant histopathologic abnormality. - Clinical history of macromastia. B) Breast, Left, Excision: - No significant histopathologic abnormality. - Clinical history of macromastia. 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 07/19/2021 12:51 PM T [facility] Gross Description Two specimens [...] tissue. There are no focal lesions identified. Lease Broker sections are submitted in cassette [id number]. Specimen [...] tissues. There are no focal lesions identified. Lease Broker sections are submitted in cassettes B1-B5. (SAMSON/ETHAN/daryl) 07/19/2021 12:51 PM [facility] Microscopic Description A) 5 H&E; B) 5 H&E. Sections of both specimens show similar histologic features: unremarkable hair-bearing skin and breast parenchyma that is unremarkable except for a rare focus of apocrine metaplasia. (SAMSON) 07/19/2021 12:51 PM [facility] Disclaimer The performance characteristics of all immunohistochemical and indirect immunofluorescence stains (if any) cited in this report were determined by the [facility] of [facility] in compliance with Clinical Laboratory Improvement Amendments of 1988 (CLIA'88) regulations. Some of these tests rely on the use of analyte-specific reagents and are subject to specific labeling requirements by the U.S. Food and Drug Administration (FDA). Such tests were developed by the [facility] of [facility] and have not been cleared or approved by the FDA. The FDA has determined that such clearance or approval is not necessary. These tests are used for clinical purposes and should not be regarded as investigational or for research. This case has been personally reviewed and interpreted by the attending (teaching) pathologist. 07/19/2021 12:51 PM [facility] Embedded Images 07/19/2021 12:51 PM [facility] Pathology/Cytology SPECIMEN FROM BREAST OBTAINED BY EXCISION / Unknown 07/14/2021 11:00 AM CDT 07/15/2021 7:23 AM CDT Comment:Pre-op diagnosis: Hypertrophy of breast [N62] Miscellaneous samples (specimen) SPECIMEN FROM BREAST OBTAINED BY EXCISION / Unknown 07/14/2021 11:00 AM CDT 07/15/2021 7:23 AM CDT Comment:Pre-op diagnosis: Hypertrophy of breast [N62] Mary Randhawa MD LAB - PATHOLOGY /CYTOLOGY ORDERABLES Performing Organization Address [facility] Co de Phone Number [facility] [address] [place] [phone] * HCG URINE QUALITATIVE - POCT (IP) INTERFACED (07/14/2021 10:31 AM CDT) Only the most recent of2 resultswithin the time period is included. HCG Qual Urine Negative Negative 07/14/2021 10:42 AM CDT [facility] Urine URINE / Unknown 07/14/2021 1 0:31 AM CDT 07/14/2021 10:42 AM CDT Mary Randhawa MD LAB - POINT OF CARE ORDERABLES Performing Organization Address [facility] Co de Phone Number [facility] [address] [place] [phone] * HCG URINE QUAL POCT NOTIFICATION (07/14/2021 10:28 AM CDT) Only the most recent of2 resultswithin the time period is included. Comment Notification Label Only - See Separate Report 07/14/2021 11:30 AM CDT [facility] Urine URINE / Unknown 07/14/2021 1 0:28 AM CDT 07/14/2021 10:29 AM CDT Mary Randhawa MD LAB - URINALYSI S ORDERABLES Performing Organization Address [facility] Co de Phone Number [facility] [address] [place] [phone] * SARS-COV-2 (COVID-19) INTERNAL (07/09/2021 1:17 PM [facility]) Only the most recent of2 resultswithin the time period is included. COVID-19 PCR Not detected Not detected 07/10/2021 1:10 AM [facility] Microbiology SPECIMEN FROM NASOPHARYNGEAL STRUCTURE / Unknown Collection / Unknown 07/09/2021 1:17 PM [facility] 07/09/2021 1:17 PM [facility] Narrative [facility] - 07/10/2021 1:10 AM [facility] This nucleic acid amplification assay performance was validated by [facility]. This test has been authorized [...] Mandy YOUNG LAB - MICROBIOLOG Y ORDERABLES [facility] [address] [place], [address] [phone] * HCG BLOOD QUALITATIVE (05/27/2021 7:18 AM [facility]) [facility] HCG Qual Serum Positive Negative, Positive 05/27/2021 7:45 AM [facility] Blood BLOOD SPECIMEN / Unknown Venipuncture / Unknown 05/27/2021 7:18 AM [facility] 05/27/2021 7:23 AM [facility] Mary Randhawa MD LAB - CHEMISTRY ORDERABLES [facility] [address] [phone], [facility] [phone] Care Teams Shop Assistant Relationship Specialty Start Date End Date Carolyne Lee PA-C [facility] [place] [phone] PCP - General Physician Planting Material Unloader 07/09/21
--- OUTSIDE RECORDS SUMMARY | 2024-07-08 19:21 | XMS_ITS | Referral Summary ---
Author Organization [facility] Address [address] [place] [address] Care Team Providers Care Patent Legal Assistant Name Role Phone Carolyne Lee PA-C Primary Care Provider Source Comments [facility],non-owned Affiliates and Associated Physician Practices is amultiple site organization consisting of ambulatory clinics and hospital sitesin [place], [place], [place] and [place]. This disclosure is being madepursuant to the Care Everywhere program and may not contain all information available regarding this patient. Last updated 18.[facility] [employer] Allergies No known active allergies Medications * [...] on file Medical Devices Implanted Type Area Database Dba Device Identifier Shelf Expiration Date Model / Serial / Lot Kit Bone Cmnt Vertaplex Hv [employer]ople[employer] Wo Implanted:Qty: 2 on 12/03/2021 by Eldon Alexander MD at [facility] N/A: Spine Lumbar Willis Spine 05/31/2023 0607-687-0 00 / / Willis 5.0mm Spinejack Case Kit Implanted:Qty: 1 on 12/03/2021 by Eldon Alexander MD at [facility] N/A: Spine Lumbar 02/29/2024 0909-000-0 50 / [id number] 50 / Willis 4.2mm Spinejack Case Kit Implanted:Qty: 1 on 12/03/2021 by Eldon Alexander MD at [facility] N/A: Spine Lumbar 09/28/2022 0909-000-0 42 / [id number] [id number] / Advance Directives * Full Code (Latest Code Status on File) Date Activated Date Inactivated Comments 11/28/2021 11:32 PM 12/05/2021 7:09 PM Care Teams Patent Legal Assistant Relationship Specialty Start Date End Date Carolyne Lee PA-C [address] [place] [phone] PCP - General Physician Fire Prevention Chief 07/09/21
== END 2024-07-08 19:31 | disposition left against medical advice (07) ==
LOC: ANHED 17:48
PROVIDERS: PCP Physician Assistant
DX: M54.50 Low back pain, unspecified (principal)
CPT/HCPCS: 99199

== ENCOUNTER 2024-07-08 17:29 | Emergency (ER) | payer BC, SELFPAY ==
[2024-07-08 17:38] VITALS: BP 121/74; PULSE 78; RESP 16; TEMP 36.8; O2SAT 100
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
== END 2024-07-08 18:00 | disposition home or self-care (01) ==
PROVIDERS: Emergency Provider Nurse Practitioner Family; PCP Physician Assistant
DX: M54.9 Dorsalgia, unspecified (principal)
CPT/HCPCS: 99213; G0463

== ENCOUNTER 2024-10-27 19:24 | Emergency (ER) | payer BC, SELFPAY ==
[2024-10-27 19:25] VITALS: BP 142/98; PULSE 82; RESP 12; TEMP 36.8; O2SAT 100
--- NOTE | 2024-10-27 19:38 | ED_ITS ---
HPI - Skin/Abscess/Foreign Bdy General Chief complaint: Skin/Abscess/Foreign Body Stated complaint: hives Time Seen by Provider: 10/27/24 19:35 Source: patient Mode of arrival: ambulatory Limitations: no limitations History of Present Illness HPI narrative: Ivy is a 23-year-old female patient presenting to the clinic today with complaints hives x1 day. She reports symptoms started yesterday. Stated she stayed in a hotel room last night when the hives began. States she had chicken for supper last night. Denies any difficulty breathing, swallowing, drooling, shortness breath, or chest pain at this time. Thought initially it may have been bedbugs so she switched hotels. No fevers, chills, body aches. Has taken Benadryl and applied hydrocortisone cream. Symptoms have improved with Benadryl. Related Data Home Medications ?Medication ?Instructions ?Recorded ?Confirmed ?Last Taken ?Type drospirenone (contraceptive) 4 mg 11/28/21 Unknown History (28) tablet (Slynd) Allergies Allergy/AdvReac Type Severity Reaction Status Date / Time No Known Allergies Allergy Verified 10/27/24 19:25 Review of Systems Review of Systems: Pertinent positives per HPI. Patient denies any fever, chills, headache, visual changes, dizziness, cough, shortness of breath, chest pain, palpitations, nausea, vomiting, diarrhea, constipation, abdominal pain, or any urinary issues. PMFSH Past Medical History Medical History Patient denies significant medical history Social History Social History Smoking status: Never smoker Comments At the time of my signature, I reviewed and agree with the nursing past medical, surgical, social, and family history. There is no relevant family history pertinent to the patient complaint. Exam Narrative: General: Well-developed, well nourished, in no apparent distress Head: Normocephalic, atraumatic Eyes: Pupils equally round and reactive to light bilaterally, EOM intact, sclera and conjunctive clear, no discharge, lids normal Ears: TMs intact and clear, ear canals clear, no drainage, grossly hearing normal. Nose: Nares patent, no discharge, no inflammation, no sinus tenderness. Mouth: Oral pharynx without lesions or masses, good dentition, MMM. Neck: Supple, trachea midline, no enlargement of anterior or posterior cervical nodes, no thyroid masses or goiter palpable. Cardio: Regular rate and rhythm, s1 and s2 normal, no murmur appreciated. Resp: Clear to auscultation bilaterally, no rhonchi, rales, wheezing or rubs Integumentary: [place], warm, and dry, intact without lesion, raised, blanchable, nontender, itchy, hive/wheel rash to arms, legs, and buttocks Course Course Emergency Course: Portions of this record may have been created with voice recognition software. Level of Care: Express Care Visit Vital Signs Vital signs: Vital signs reviewed MDM - Skin/Abscess/Foreign Bdy MDM Narrative Medical decision making narrative: At the time of visit patient is resting comfortably on the exam table. Patient appears to be nontoxic. Plan: I suspect patient has hives. Prescription for prednisone and Pepcid was sent to the pharmacy. Recommend taking [id number] Zyrtec or Claritin. Supportive measures were discussed with the patient and they voiced understanding discharge instructions and agrees to treatment plan. Return precautions reviewed Differential Diagnosis Differential diagnosis: Likely abscess of skin or subcutaneous tissue, viral exanthem, dermatophytosis, urticaria, herpes zoster, allergic reaction to drug, cellulitis, eczema, insect bites, impetigo and contact dermatitis Discharge Plan Discharge Clinical Impression: Urticaria Patient Disposition: Home Condition: Stable Instructions: Antibiotic Form, Urticaria (ED) Additional Instructions: Take prednisone and Pepcid as directed Take Claritin or Zyrtec daily Avoid hot showers Avoid scratching as this can cause a secondary infection May take benadryl 25-50mg every 6 hours as needed for itching. Follow up with your PCP in 3-5 days if symptoms persist or sooner if they worsen Go to the Emergency Room if symptoms worsen- fever, rash spreading with treatment, shortness of breath, tongue swelling, drooling, or chest pain Patient Language: Tunisian Prescriptions: New prednisone 10 mg tablet 10 mg PO DAILY Qty: 30 0RF Rx Instructions: 60mg po daily on day 1, 40mg po daily on days 2-4, 30mg po daily on days 5-6, 20mg po daily on days 7-8, 10mg po daily on days 9-10 famotidine [Pepcid] 40 mg tablet 40 mg PO DAILY 10 Days Qty: 10 0RF No Action Slynd 4 mg (28) tablet Follow-up/Referrals: Jesus,FERNANDA Gage [Primary Care Provider] - Time of Disposition: 19:36 Quality NIHSS Nursing Documentation ED NIHSS nursing documentation: reviewed/agree
== END 2024-10-27 19:43 | disposition home or self-care (01) ==
PROVIDERS: Emergency Provider Nurse Practitioner Family; PCP Physician Assistant
DX: L50.9 Urticaria, unspecified (principal)
CPT/HCPCS: 99213; G0463